=== PATIENT | male | born 1950 | race Caucasian/White ===

== ENCOUNTER → 2016-12-06 | Outpatient (CLI) | payer OTHER ==
[2016-12-06 09:36] LABS: Urine RBC None Seen /hpf (0 - 3)
[2016-12-06 09:44] LABS: Basophils # (auto) 0 uL; Basophils % (auto) 0.5 % (0.0-2.0); Eosinophils # (auto) 0.1 uL; Eosinophils % (auto) 2.2 % (0.0-7.0); Hemoglobin 13.6 g/dL (13.5-17.5); Lymphocytes # (auto) 0.8 uL; Lymphocytes % (auto) 17.2 % (10.0-50.0); Mean Corpuscular Hemoglobin 31.1 pg (28.0-32.0); Mean Corpuscular Hgb Conc. 33.3 g/dL (32.0-36.0); Mean Corpuscular Volume 93.6 fL (80.0-100.0); Mean Platelet Volume 5.9 fL (7.4-10.4); Monocytes # (auto) 0.3 uL; Monocytes % (auto) 6.7 % (0.0-12.0); Neutrophils # (auto) 3.5 uL; Neutrophils % (auto) 73.4 % (37.0-80.0); Platelet Count (auto) 283 10^3/uL (140-450); Red Cell Distribution Width 14.2 % (11.6-16.0); White Blood Cell 4.8 10^3/uL (4.4-10.8)
[2016-12-06 09:56] LABS: Urine Bilirubin Negative (Negative); Urine Blood Negative /uL (Negative); Urine Color Yellow (Yellow); Urine Glucose Normal (Normal); Urine Ketone Negative (Negative); Urine Nitrite Negative (Negative); Urine Squamous Epithelial Cell FEW /hpf (<5); Urine Urobilinogen Normal (Negative); Urine pH 5.5 (5.0-8.0)
[2016-12-06 10:29] LABS: Albumin 3.9 g/dL (3.4-5.0); Bilirubin, Total 0.4 mg/dL (0.2-1.0); Calcium 8.5 mg/dL (8.5-10.1); Potassium 4.5 mmol/L (3.5-5.1); Total Protein 7.1 g/dL (6.4-8.2); Uric Acid 4.9 mg/dL (3.5-7.2)
== END | disposition home or self-care (01) ==
LOC: LAB 08:42
PROVIDERS: ATTEND Student in an Organized Health Care Education/Training Program
DX: N18.3 Chronic kidney disease, stage 3 (moderate) (principal); I10 Essential (primary) hypertension
CPT/HCPCS: 36415; 80053; 80061; 81001; 82306; 83036; 83970; 84439; 84443; 84550; 85025

== ENCOUNTER → 2017-02-08 | Outpatient (CLI) | payer OTHER | END | disposition home or self-care (01) | LOC: XY 08:20 | PROVIDERS: ATTEND Internal Medicine Cardiovascular Disease | DX: I20.8 Other forms of angina pectoris (principal) | CPT/HCPCS: 78452; 93017 ==

== ENCOUNTER 2017-08-16 10:20 | Day surgery (SDC) | payer OTHER ==
[2017-08-12 10:18] LABS: Urine RBC None Seen /hpf (0 - 3)
[2017-08-12 10:55] LABS: Urine Bilirubin Negative (Negative); Urine Blood Negative /uL (Negative); Urine Glucose Normal (Normal); Urine Ketone Negative (Negative); Urine Nitrite Negative (Negative); Urine Urobilinogen Normal (Negative); Urine pH 5.5 (5.0-8.0)
[2017-08-12 10:56] LABS: Basophils # (auto) 0 uL; Basophils % (auto) 0.9 % (0.0-2.0); Eosinophils # (auto) 0.1 uL; Eosinophils % (auto) 1.6 % (0.0-7.0); Hematocrit 42.2 % (41.0-53.0); Hemoglobin 14.1 g/dL (13.5-17.5); Lymphocytes # (auto) 0.6 uL; Lymphocytes % (auto) 11.6 % (10.0-50.0); Mean Corpuscular Hemoglobin 31.6 pg (28.0-32.0); Mean Corpuscular Hgb Conc. 33.3 g/dL (32.0-36.0); Mean Corpuscular Volume 94.8 fL (80.0-100.0); Mean Platelet Volume 6.1 fL (6.9-10.8); Monocytes # (auto) 0.3 uL; Monocytes % (auto) 6.2 % (0.0-12.0); Neutrophils % (auto) 79.7 % (37.0-80.0); Platelet Count (auto) 242 10^3/uL (140-450); Red Cell Distribution Width 13.5 % (11.8-14.3); White Blood Cell 5.1 10^3/uL (4.4-10.8)
[2017-08-12 11:04] LABS: Urine Color Straw (Yellow)
[2017-08-12 11:09] LABS: Albumin 3.9 g/dL (3.4-5.0); BUN/Creatinine Ratio 19.4; Calcium 8.5 mg/dL (8.5-10.1); Potassium 4.3 mmol/L (3.5-5.1)
[2017-08-12 11:11] LABS: INR 0.92 (0.9-1.15); Partial Thromboplastin Time 27.8 sec (22.64-33.71)
[2017-08-12 11:12] LABS: Bilirubin, Total 0.4 mg/dL (0.2-1.0); Total Protein 7.4 g/dL (6.4-8.2)
[~2017-08-16] VITALS: Ht 177.8 cm; Wt 66.7 kg
[~2017-08-16 10:20] MED LIST: AMIT25TA9 PO; ATOR40TA52 PO; CITA-77 PO; CLOP75TA41 PO; FEBU40TA PO; LEVO50TA7 PO; METO25TA62 PO; NITR0.4S29 SL; RAMI2.5C33 PO; RANI150C11 PO
[2017-08-16] MEDS ORDERED: ceFAZolin 1GM/50ML 50 ML IV ONE (10:26)
[2017-08-16] MEDS ORDERED: BUPIVACAINE W/ EPINEPH 0.25% INJ 50ML MDV ONE (15:30)
[2017-08-16] MEDS ORDERED: LIDOCAINE 1% HCL (LOCAL ANESTH.) INJ 20ML MDV ONE (15:30)
[2017-08-16] MEDS ORDERED: BUPIVACAINE 0.25% INJ 50ML VIAL ONE (15:31)
[2017-08-16] MEDS ORDERED: fentaNYL CITRATE 100 MCG/2 ML VL ONE (15:44)
[2017-08-16] MEDS ORDERED: LIDOCAINE HCL 2 %PF INJ 10ML AMP IJ ONE (15:45)
[2017-08-16] MEDS ORDERED: PROPOFOL 10 MG/ML 20 ML IV ONE (15:48)
[2017-08-16] MEDS ORDERED: ePHEDrine SULFATE 50 MG/ML AMP ONE (16:06)
[2017-08-16] MEDS ORDERED: BUPIVACAINE W/ EPINEPH 0.25% INJ 50ML MDV IJ ONE (16:35)
[2017-08-16 17:30] VITALS: BP 128/67
== END 2017-08-16 17:36 | disposition home or self-care (01) ==
LOC: SUR 10:20
PROVIDERS: ATTEND Urology
DX: N43.3 Hydrocele, unspecified (principal); D69.6 Thrombocytopenia, unspecified; Z87.891 Personal history of nicotine dependence; Z90.5 Acquired absence of kidney
CPT/HCPCS: 36415; 55040; 80053; 81001; 85025; 85610; 85730; 88302; J0690; J2704; J3010; J2001; J3490

== ENCOUNTER → 2019-03-07 | Outpatient (CLI) | payer OTHER ==
[~2019-03-07] MED LIST changes: +METO25TA5 PO
[2019-03-07 08:57] LABS: Basophils # (auto) 0 uL; Basophils % (auto) 0.9 % (0.0-2.0); Eosinophils # (auto) 0.1 uL; Eosinophils % (auto) 2.5 % (0.0-7.0); Hematocrit 43.8 % (41.0-53.0); Hemoglobin 14.5 g/dL (13.5-17.5); Lymphocytes # (auto) 0.5 uL; Lymphocytes % (auto) 13.4 % (10.0-50.0); Mean Corpuscular Hemoglobin 31.2 pg (28.0-32.0); Mean Corpuscular Hgb Conc. 33.2 g/dL (32.0-36.0); Mean Corpuscular Volume 93.9 fL (80.0-100.0); Monocytes # (auto) 0.3 uL; Monocytes % (auto) 7.9 % (0.0-12.0); Neutrophils # (auto) 2.9 uL; Neutrophils % (auto) 75.3 % (37.0-80.0); Platelet Count (auto) 180 10^3/uL (140-450); Red Blood Cells 4.67 10^6/uL (4.5-5.90); White Blood Cell 3.9 10^3/uL (4.4-10.8)
[2019-03-07 10:07] LABS: Albumin 3.9 g/dL (3.4-5.0); Calcium 9.4 mg/dL (8.5-10.1); Potassium 4.6 mmol/L (3.5-5.1)
[2019-03-07 10:12] LABS: BUN/Creatinine Ratio 17.4; Bilirubin, Total 0.7 mg/dL (0.2-1.0); Phosphorus 2.9 mg/dL (2.5-4.90); Uric Acid 5.2 mg/dL (3.5-7.2)
[2019-03-07 10:16] LABS: Free T4 (Free Thyroxine) 0.95 ng/dL (0.89-1.76); Prostate Specific Antigen 0.61 ng/mL (0.0-4.0)
[2019-03-07 10:17] LABS: T3 Total 0.84 ng/mL (0.60-1.81)
== END | disposition home or self-care (01) ==
LOC: LAB 08:33
PROVIDERS: ATTEND Physician Assistant
DX: Z12.5 Encounter for screening for malignant neoplasm of prostate (principal); I12.9 Hypertensive chronic kidney disease with stage 1 through stage 4 chronic kidney disease, or unspecified chronic kidney disease; N18.3 Chronic kidney disease, stage 3 (moderate); E03.8 Other specified hypothyroidism; K21.9 Gastro-esophageal reflux disease without esophagitis; M1A.09X0 Idiopathic chronic gout, multiple sites, without tophus (tophi); D63.1 Anemia in chronic kidney disease; R80.9 Proteinuria, unspecified
CPT/HCPCS: 36415; 80053; 80061; 80069; 82306; 82570; 83970; 84153; 84156; 84439; 84443; 84480; 84550; 85025

== ENCOUNTER → 2019-10-26 | Outpatient (CLI) | payer OTHER ==
[~2019-10-26] MED LIST changes: -METO25TA62 PO; +METO25TA93 PO
[2019-10-26 12:03] LABS: Basophils # (auto) 0 uL; Basophils % (auto) 0.8 % (0.0-2.0); Eosinophils # (auto) 0.1 uL; Eosinophils % (auto) 1.8 % (0.0-7.0); Hematocrit 43.6 % (41.0-53.0); Hemoglobin 14.5 g/dL (13.5-17.5); Lymphocytes # (auto) 0.6 uL; Lymphocytes % (auto) 11.7 % (10.0-50.0); Mean Corpuscular Hemoglobin 31.9 pg (28.0-32.0); Mean Corpuscular Hgb Conc. 33.4 g/dL (32.0-36.0); Mean Corpuscular Volume 95.4 fL (80.0-100.0); Monocytes # (auto) 0.3 uL; Monocytes % (auto) 6.8 % (0.0-12.0); Neutrophils # (auto) 3.9 uL; Neutrophils % (auto) 78.9 % (37.0-80.0); Platelet Count (auto) 184 10^3/uL (140-450); Red Blood Cells 4.57 10^6/uL (4.5-5.90); Red Cell Distribution Width 13.7 % (11.8-14.3); Urine Blood Negative /uL (Negative); Urine Specific Gravity 1.008 (1.001-1.035); White Blood Cell 4.9 10^3/uL (4.4-10.8)
[2019-10-26 12:13] LABS: Creatinine, Urine 35 mg/dL (30.0-125.0); Protein, Urine 6.2 mg/dL (0.0-11.9)
[2019-10-26 12:18] LABS: Potassium 4.8 mmol/L (3.5-5.1)
[2019-10-26 12:28] LABS: Albumin 3.8 g/dL (3.4-5.0); BUN/Creatinine Ratio 28.4; Calcium 8.9 mg/dL (8.5-10.1); Phosphorus 2.4 mg/dL (2.5-4.90); Uric Acid 6.6 mg/dL (3.5-7.2)
== END | disposition home or self-care (01) ==
LOC: LAB 11:18
PROVIDERS: ATTEND Internal Medicine
DX: E55.9 Vitamin D deficiency, unspecified (principal); R80.9 Proteinuria, unspecified
CPT/HCPCS: 36415; 80069; 81003; 82306; 82570; 83970; 84156; 84550; 85025

== ENCOUNTER → 2019-12-07 | Day surgery (SDC) | payer OTHER ==
[2019-12-03 11:17] LABS: Urine WBC None Seen /hpf (0 - 3)
[2019-12-03 11:18] LABS: Basophils # (auto) 0.1 uL; Eosinophils # (auto) 0.1 uL; Eosinophils % (auto) 1.4 % (0.0-7.0); Hematocrit 42.8 % (41.0-53.0); Hemoglobin 14.1 g/dL (13.5-17.5); Lymphocytes # (auto) 0.6 uL; Lymphocytes % (auto) 10.2 % (10.0-50.0); Mean Corpuscular Hemoglobin 31.5 pg (28.0-32.0); Mean Corpuscular Volume 95.4 fL (80.0-100.0); Monocytes # (auto) 0.5 uL; Neutrophils # (auto) 4.9 uL; Neutrophils % (auto) 79.4 % (37.0-80.0); Platelet Count (auto) 178 10^3/uL (140-450); Red Blood Cells 4.48 10^6/uL (4.5-5.90); Red Cell Distribution Width 13.6 % (11.8-14.3); White Blood Cell 6.2 10^3/uL (4.4-10.8)
[2019-12-03 11:34] LABS: INR 1.01 (0.9-1.15); Partial Thromboplastin Time 26.8 sec (23.64-32.05)
[2019-12-03 11:35] LABS: Urine Bacteria NONE SEEN /hpf (None Seen); Urine Blood Negative /uL (Negative); Urine Specific Gravity 1.004 (1.001-1.035)
[2019-12-03 11:53] LABS: Albumin 3.7 g/dL (3.4-5.0); Calcium 8.4 mg/dL (8.5-10.1); Potassium 4.9 mmol/L (3.5-5.1)
[2019-12-03 11:56] LABS: BUN/Creatinine Ratio 19.3; Bilirubin, Total 0.4 mg/dL (0.2-1.0); Total Protein 6.8 g/dL (6.4-8.2)
[~2019-12-07] VITALS: Ht 177.8 cm; Wt 68.9 kg
[~2019-12-07] MED LIST changes: +ASPI-404 PO; +GLYCOPYRROLATE 0.2 MG/ML 1ML VIAL ONE; +HYDROmorphone HCL 2 MG/ML VL IV PRN; +LIDOCAINE 1% HCL (LOCAL ANESTH.) INJ 20ML MDV ONE; -METO25TA5 PO; +METOCLOPRAMIDE HCL 5MG/ml INJ 2ml VIAL ONE; +MIDAZOLAM HCL 1MG/1ML-2 ML VIAL ONE; +NALOXONE HCL 0.4 MG/ML VIAL IV PRN; +ONDANSETRON HCL 4 MG/2 ML VIAL IV PRN; +PROPOFOL 10 MG/ML 20 ML IV ONE; +SUCCINYLCHOLINE CHLORIDE 20 MG/ML 10ML VIAL IV ONE; +ceFAZolin 1GM/50ML 50 ML IV ONE; +diphenhdrAMINE HCL 50 MG/1 ML VL ONE
[2019-12-07 08:54] VITALS: BP 139/78
== END | disposition home or self-care (01) ==
LOC: SUR 06:10
PROVIDERS: ATTEND Orthopaedic Surgery
DX: G56.02 Carpal tunnel syndrome, left upper limb (principal); M72.8 Other fibroblastic disorders; I25.2 Old myocardial infarction; I25.10 Atherosclerotic heart disease of native coronary artery without angina pectoris; G47.33 Obstructive sleep apnea (adult) (pediatric); E07.9 Disorder of thyroid, unspecified; F32.9 Major depressive disorder, single episode, unspecified; Z79.01 Long term (current) use of anticoagulants; Z95.818 Presence of other cardiac implants and grafts; Z87.891 Personal history of nicotine dependence; Z79.899 Other long term (current) drug therapy
CPT/HCPCS: 25023; 36415; 64721; 80053; 81001; 85025; 85610; 85730; J0330; J0690; J1200; J2001; J2250; J2704; J2765

== ENCOUNTER → 2020-03-05 | Outpatient (CLI) | payer OTHER ==
[~2020-03-05] MED LIST changes: -GLYCOPYRROLATE 0.2 MG/ML 1ML VIAL ONE; -HYDROmorphone HCL 2 MG/ML VL IV PRN; -LIDOCAINE 1% HCL (LOCAL ANESTH.) INJ 20ML MDV ONE; -METOCLOPRAMIDE HCL 5MG/ml INJ 2ml VIAL ONE; -MIDAZOLAM HCL 1MG/1ML-2 ML VIAL ONE; -NALOXONE HCL 0.4 MG/ML VIAL IV PRN; -ONDANSETRON HCL 4 MG/2 ML VIAL IV PRN; -PROPOFOL 10 MG/ML 20 ML IV ONE; -SUCCINYLCHOLINE CHLORIDE 20 MG/ML 10ML VIAL IV ONE; -ceFAZolin 1GM/50ML 50 ML IV ONE; -diphenhdrAMINE HCL 50 MG/1 ML VL ONE
[2020-03-05 08:24] LABS: Basophils # (auto) 0 10 ^3/uL (0-0.2); Basophils % (auto) 0.9 % (0.0-2.0); Eosinophils # (auto) 0.1 10 ^3/uL (0-0.8); Eosinophils % (auto) 1.9 % (0.0-7.0); Hematocrit 41.9 % (41.0-53.0); Lymphocytes # (auto) 0.4 10 ^3/uL (0.4-5.4); Lymphocytes % (auto) 10.9 % (10.0-50.0); Mean Corpuscular Hemoglobin 32.1 pg (28.0-32.0); Mean Corpuscular Hgb Conc. 33.5 g/dL (32.0-36.0); Mean Corpuscular Volume 95.9 fL (80.0-100.0); Monocytes # (auto) 0.3 10 ^3/uL (0-1.3); Monocytes % (auto) 8.6 % (0.0-12.0); Neutrophils # (auto) 3.1 10 ^3/uL (1.6-8.6); Neutrophils % (auto) 77.7 % (37.0-80.0); Platelet Count (auto) 176 10^3/uL (140-450); Red Blood Cells 4.36 10^6/uL (4.5-5.90)
[2020-03-05 08:27] LABS: Urine Blood Negative /uL (Negative); Urine Specific Gravity 1.016 (1.001-1.035)
[2020-03-05 08:53] LABS: Potassium 4.2 mmol/L (3.5-5.1)
[2020-03-05 08:58] LABS: Creatinine, Urine 151 mg/dL (30.0-125.0); Protein, Urine 18.2 mg/dL (0.0-11.9)
[2020-03-05 09:00] LABS: BUN/Creatinine Ratio 21.9; Bilirubin, Total 0.6 mg/dL (0.2-1.0); Calcium 8.5 mg/dL (8.5-10.1); Phosphorus 2.5 mg/dL (2.5-4.90); Total Protein 7.2 g/dL (6.4-8.2)
== END | disposition home or self-care (01) ==
LOC: LAB 07:47
PROVIDERS: ATTEND Physician Assistant
DX: Z00.00 Encounter for general adult medical examination without abnormal findings (principal); I10 Essential (primary) hypertension; N18.3 Chronic kidney disease, stage 3 (moderate); E03.9 Hypothyroidism, unspecified; J44.9 Chronic obstructive pulmonary disease, unspecified; R35.1 Nocturia; E55.9 Vitamin D deficiency, unspecified; R80.9 Proteinuria, unspecified
CPT/HCPCS: 36415; 80053; 80061; 80069; 81003; 82306; 82570; 83970; 84153; 84156; 84443; 84550; 85025

== ENCOUNTER → 2020-03-26 | Outpatient (CLI) | payer OTHER ==
[~2020-03-26] MED LIST changes: +LIDOCAINE 2%HCL (LOCAL ANESTH.) INJ 20ML MDV ONE
== END | disposition home or self-care (01) ==
LOC: XYW 07:56
PROVIDERS: ATTEND Internal Medicine
DX: I07.1 Rheumatic tricuspid insufficiency (principal); R07.9 Chest pain, unspecified
CPT/HCPCS: 93306

== ENCOUNTER → 2020-03-26 | Outpatient (CLI) | payer OTHER ==
[~2020-03-26] MED LIST changes: -LIDOCAINE 2%HCL (LOCAL ANESTH.) INJ 20ML MDV ONE
[2020-03-26 09:29] LABS: Basophils # (auto) 0 10 ^3/uL (0-0.2); Basophils % (auto) 0.5 % (0.0-2.0); Eosinophils # (auto) 0.1 10 ^3/uL (0-0.8); Eosinophils % (auto) 1.2 % (0.0-7.0); Hematocrit 39.1 % (41.0-53.0); Hemoglobin 12.8 g/dL (13.5-17.5); Lymphocytes # (auto) 0.5 10 ^3/uL (0.4-5.4); Lymphocytes % (auto) 7.5 % (10.0-50.0); Mean Corpuscular Hemoglobin 31.3 pg (28.0-32.0); Mean Corpuscular Hgb Conc. 32.6 g/dL (32.0-36.0); Monocytes # (auto) 0.7 10 ^3/uL (0-1.3); Neutrophils # (auto) 5.3 10 ^3/uL (1.6-8.6); Neutrophils % (auto) 80.8 % (37.0-80.0); Nucleated Red Blood Cells % 0.1 %; Platelet Count (auto) 190 10^3/uL (140-450); Red Blood Cells 4.08 10^6/uL (4.5-5.90); Red Cell Distribution Width 13.6 % (11.8-14.3); White Blood Cell 6.5 10^3/uL (4.4-10.8)
[2020-03-26 09:51] LABS: INR 1.01 (0.9-1.15); Partial Thromboplastin Time 34.2 sec (23.64-32.05)
== END | disposition home or self-care (01) ==
LOC: LAB 09:10
PROVIDERS: ATTEND Physician Assistant
DX: Z01.818 Encounter for other preprocedural examination (principal)
CPT/HCPCS: 36415; 85025; 85610; 85730

== ENCOUNTER → 2020-04-01 | Outpatient (CLI) | payer OTHER ==
[~2020-04-01] VITALS: Ht 30.5 cm; Wt 0.5 kg
[~2020-04-01] MED LIST changes: +MIDAZOLAM HCL 1MG/1ML-2 ML VIAL IV ONE; +MIDAZOLAM HCL 1MG/1ML-2 ML VIAL ONE; +fentaNYL CITRATE 100 MCG/2 ML VL IV ONE; +fentaNYL CITRATE 100 MCG/2 ML VL ONE
== END | disposition home or self-care (01) ==
LOC: CT 08:27
PROVIDERS: ATTEND Physician Assistant
DX: R91.1 Solitary pulmonary nodule (principal); Z79.899 Other long term (current) drug therapy; Z98.890 Other specified postprocedural states; Z88.5 Allergy status to narcotic agent; Z87.891 Personal history of nicotine dependence; J98.9 Respiratory disorder, unspecified
CPT/HCPCS: 32405; 71045; 71250; 77012; 88305; J2250; J3010; 10022

== ENCOUNTER → 2020-04-02 | Outpatient (CLI) | payer OTHER ==
[~2020-04-02] MED LIST changes: -MIDAZOLAM HCL 1MG/1ML-2 ML VIAL IV ONE; -MIDAZOLAM HCL 1MG/1ML-2 ML VIAL ONE; -fentaNYL CITRATE 100 MCG/2 ML VL IV ONE; -fentaNYL CITRATE 100 MCG/2 ML VL ONE
== END | disposition home or self-care (01) ==
LOC: XYW 09:26
PROVIDERS: ATTEND Physician Assistant
DX: I70.0 Atherosclerosis of aorta (principal); R91.8 Other nonspecific abnormal finding of lung field
CPT/HCPCS: 71046

== ENCOUNTER → 2020-04-03 | Outpatient (CLI) | payer OTHER | END | disposition home or self-care (01) | LOC: XY 08:39 | PROVIDERS: ATTEND Physician Assistant | DX: I70.0 Atherosclerosis of aorta (principal); J93.9 Pneumothorax, unspecified | CPT/HCPCS: 71045 ==

== ENCOUNTER → 2020-05-05 | Outpatient (CLI) | payer OTHER ==
[~2020-05-05] MED LIST changes: -ASPI-404 PO; +ASPI-543 PO
[2020-05-05 09:28] LABS: Urine WBC None Seen /hpf (0 - 3)
[2020-05-05 09:34] LABS: Basophils # (auto) 0.1 10 ^3/uL (0-0.2); Basophils % (auto) 1.2 % (0.0-2.0); Eosinophils # (auto) 0.1 10 ^3/uL (0-0.8); Eosinophils % (auto) 1.8 % (0.0-7.0); Hematocrit 38.9 % (41.0-53.0); Hemoglobin 12.9 g/dL (13.5-17.5); Lymphocytes # (auto) 0.6 10 ^3/uL (0.4-5.4); Mean Corpuscular Hemoglobin 31.5 pg (28.0-32.0); Mean Corpuscular Hgb Conc. 33.2 g/dL (32.0-36.0); Monocytes # (auto) 0.4 10 ^3/uL (0-1.3); Platelet Count (auto) 177 10^3/uL (140-450); Red Blood Cells 4.09 10^6/uL (4.5-5.90); White Blood Cell 5.1 10^3/uL (4.4-10.8)
[2020-05-05 09:39] LABS: Urine Bacteria NONE SEEN /hpf (None Seen); Urine Blood Negative /uL (Negative); Urine Specific Gravity 1.007 (1.001-1.035)
[2020-05-05 10:09] LABS: Albumin 3.6 g/dL (3.4-5.0); BUN/Creatinine Ratio 23.7; Calcium 8.7 mg/dL (8.5-10.1); Potassium 4.6 mmol/L (3.5-5.1); Uric Acid 5.2 mg/dL (3.5-7.2)
[2020-05-05 10:10] LABS: Protein, Urine 6.3 mg/dL (0.0-11.9)
== END | disposition home or self-care (01) ==
LOC: LAB 09:18
PROVIDERS: ATTEND Internal Medicine
DX: N18.3 Chronic kidney disease, stage 3 (moderate) (principal); D63.1 Anemia in chronic kidney disease; E21.3 Hyperparathyroidism, unspecified; E78.5 Hyperlipidemia, unspecified; M10.9 Gout, unspecified; R80.9 Proteinuria, unspecified; E56.9 Vitamin deficiency, unspecified
CPT/HCPCS: 36415; 80069; 81001; 82306; 82570; 83970; 84156; 84550; 85025

== ENCOUNTER → 2020-05-29 | Outpatient (CLI) | payer OTHER ==
[~2020-05-29] VITALS: Ht 177.8 cm; Wt 68.0 kg
[~2020-05-29] MED LIST changes: +ADENOSINE 57 MG in GIVE UN-DILUTED 0 ML IV STA; +ADENOSINE 95 MG in GIVE UN-DILUTED 0 ML IV STA
== END | disposition home or self-care (01) ==
LOC: XY 05-28 08:22
PROVIDERS: ATTEND Internal Medicine
DX: R07.9 Chest pain, unspecified (principal); I10 Essential (primary) hypertension; E78.5 Hyperlipidemia, unspecified; Z95.5 Presence of coronary angioplasty implant and graft
CPT/HCPCS: 93017; J0153

== ENCOUNTER → 2020-06-05 | Outpatient (CLI) | payer OTHER ==
[~2020-06-05] MED LIST changes: -ADENOSINE 57 MG in GIVE UN-DILUTED 0 ML IV STA; -ADENOSINE 95 MG in GIVE UN-DILUTED 0 ML IV STA
== END | disposition home or self-care (01) ==
LOC: LAB 10:53
PROVIDERS: ATTEND Physician Assistant
DX: R35.1 Nocturia (principal)
CPT/HCPCS: 84153

== ENCOUNTER → 2020-08-22 | Outpatient (CLI) | payer OTHER ==
[2020-08-22 08:36] LABS: Basophils # (auto) 0 10 ^3/uL (0-0.2); Basophils % (auto) 0.4 % (0.0-2.0); Eosinophils # (auto) 0.1 10 ^3/uL (0-0.8); Eosinophils % (auto) 2.1 % (0.0-7.0); Hematocrit 43.2 % (41.0-53.0); Hemoglobin 14.5 g/dL (13.5-17.5); Lymphocytes # (auto) 0.6 10 ^3/uL (0.4-5.4); Lymphocytes % (auto) 13.3 % (10.0-50.0); Mean Corpuscular Hemoglobin 32.1 pg (28.0-32.0); Mean Corpuscular Hgb Conc. 33.5 g/dL (32.0-36.0); Monocytes # (auto) 0.3 10 ^3/uL (0-1.3); Monocytes % (auto) 7.4 % (0.0-12.0); Neutrophils # (auto) 3.6 10 ^3/uL (1.6-8.6); Neutrophils % (auto) 76.8 % (37.0-80.0); Platelet Count (auto) 184 10^3/uL (140-450); Red Cell Distribution Width 14.4 % (11.8-14.3); White Blood Cell 4.6 10^3/uL (4.4-10.8)
[2020-08-22 09:51] LABS: Potassium 5.4 mmol/L (3.5-5.1)
[2020-08-22 09:59] LABS: Albumin 3.7 g/dL (3.4-5.0); BUN/Creatinine Ratio 17.3; Bilirubin, Total 0.5 mg/dL (0.2-1.0); Total Protein 6.7 g/dL (6.4-8.2); Uric Acid 6.9 mg/dL (3.5-7.2)
== END | disposition home or self-care (01) ==
LOC: LAB 07:52
PROVIDERS: ATTEND Physician Assistant
DX: I12.9 Hypertensive chronic kidney disease with stage 1 through stage 4 chronic kidney disease, or unspecified chronic kidney disease (principal); N18.30 Chronic kidney disease, stage 3 unspecified; E79.0 Hyperuricemia without signs of inflammatory arthritis and tophaceous disease; D69.6 Thrombocytopenia, unspecified; E03.9 Hypothyroidism, unspecified; R35.1 Nocturia
CPT/HCPCS: 36415; 80053; 80061; 84153; 84443; 84550; 85025

== ENCOUNTER → 2020-11-10 | Outpatient (CLI) | payer OTHER ==
[~2020-11-10] MED LIST changes: -CLOP75TA41 PO; +CLOP75TA70 PO
[2020-11-10 08:31] LABS: Basophils # (auto) 0 10 ^3/uL (0-0.2); Eosinophils # (auto) 0.1 10 ^3/uL (0-0.8); Eosinophils % (auto) 2.8 % (0.0-7.0); Hematocrit 41.1 % (41.0-53.0); Lymphocytes # (auto) 0.5 10 ^3/uL (0.4-5.4); Lymphocytes % (auto) 11.8 % (10.0-50.0); Mean Corpuscular Hgb Conc. 33.9 g/dL (32.0-36.0); Mean Corpuscular Volume 94.2 fL (80.0-100.0); Monocytes # (auto) 0.3 10 ^3/uL (0-1.3); Monocytes % (auto) 7.3 % (0.0-12.0); Neutrophils # (auto) 3.6 10 ^3/uL (1.6-8.6); Neutrophils % (auto) 77.1 % (37.0-80.0); Platelet Count (auto) 196 10^3/uL (140-450); Red Blood Cells 4.36 10^6/uL (4.5-5.90); Red Cell Distribution Width 13.5 % (11.8-14.3); White Blood Cell 4.6 10^3/uL (4.4-10.8)
[2020-11-10 08:35] LABS: Urine Bacteria NONE SEEN /hpf (None Seen); Urine Blood TRACE /uL (Negative); Urine Specific Gravity 1.014 (1.001-1.035); Urine WBC 1 /hpf (0 - 3)
[2020-11-10 09:03] LABS: Albumin 3.9 g/dL (3.4-5.0); BUN/Creatinine Ratio 14.8; Calcium 8.6 mg/dL (8.5-10.1); Phosphorus 2.4 mg/dL (2.5-4.90); Potassium 4.1 mmol/L (3.5-5.1)
[2020-11-11 02:48] LABS: Protein, Urine 22.5 mg/dL (0.0-11.9)
== END | disposition home or self-care (01) ==
LOC: LAB 08:03
PROVIDERS: ATTEND Internal Medicine
DX: N18.30 Chronic kidney disease, stage 3 unspecified (principal); D63.1 Anemia in chronic kidney disease; E21.3 Hyperparathyroidism, unspecified; E78.5 Hyperlipidemia, unspecified; M10.9 Gout, unspecified; R80.9 Proteinuria, unspecified; E56.9 Vitamin deficiency, unspecified
CPT/HCPCS: 36415; 80069; 81001; 82306; 82570; 83970; 84156; 84550; 85025

== ENCOUNTER → 2020-12-09 | Outpatient (CLI) | payer OTHER | END | disposition home or self-care (01) | LOC: XYW 08:01 | PROVIDERS: ATTEND Internal Medicine | DX: I10 Essential (primary) hypertension (principal) | CPT/HCPCS: 93306 ==

== ENCOUNTER → 2021-02-27 | Outpatient (CLI) | payer OTHER ==
[~2021-02-27] MED LIST changes: +ALBUTEROL SULF 2.5 MG/0.5ML(0.5%) NEB SOLN ONE
== END | disposition home or self-care (01) ==
LOC: RT 08:43
PROVIDERS: ATTEND Internal Medicine Pulmonary Disease
DX: J44.9 Chronic obstructive pulmonary disease, unspecified (principal); J98.4 Other disorders of lung
CPT/HCPCS: 94060; 94727; 94729

== ENCOUNTER → 2021-05-04 | Outpatient (CLI) | payer OTHER ==
[~2021-05-04] MED LIST changes: -ALBUTEROL SULF 2.5 MG/0.5ML(0.5%) NEB SOLN ONE
[2021-05-04 09:35] LABS: Urine WBC None Seen /hpf (0 - 3)
[2021-05-04 09:41] LABS: Basophils # (auto) 0.1 10 ^3/uL (0-0.2); Basophils % (auto) 1.1 % (0.0-2.0); Eosinophils # (auto) 0.1 10 ^3/uL (0-0.8); Eosinophils % (auto) 2.6 % (0.0-7.0); Hematocrit 39.7 % (41.0-53.0); Hemoglobin 13.2 g/dL (13.5-17.5); Lymphocytes # (auto) 0.5 10 ^3/uL (0.4-5.4); Lymphocytes % (auto) 10.7 % (10.0-50.0); Mean Corpuscular Hemoglobin 31.6 pg (28.0-32.0); Mean Corpuscular Hgb Conc. 33.4 g/dL (32.0-36.0); Mean Corpuscular Volume 94.8 fL (80.0-100.0); Monocytes # (auto) 0.3 10 ^3/uL (0-1.3); Monocytes % (auto) 6.7 % (0.0-12.0); Neutrophils # (auto) 3.6 10 ^3/uL (1.6-8.6); Neutrophils % (auto) 78.9 % (37.0-80.0); Red Blood Cells 4.18 10^6/uL (4.5-5.90); Red Cell Distribution Width 13.6 % (11.8-14.3); White Blood Cell 4.5 10^3/uL (4.4-10.8)
[2021-05-04 09:47] LABS: Urine Bacteria FEW /hpf (None Seen); Urine Blood Negative /uL (Negative); Urine Specific Gravity 1.005 (1.001-1.035)
[2021-05-04 10:37] LABS: Potassium 4.1 mmol/L (3.5-5.1)
[2021-05-04 10:41] LABS: Protein, Urine 5.7 mg/dL (0.0-11.9)
[2021-05-04 10:43] LABS: Albumin 3.4 g/dL (3.4-5.0); Calcium 8.3 mg/dL (8.5-10.1)
== END | disposition home or self-care (01) ==
LOC: LAB 09:02
PROVIDERS: ATTEND Internal Medicine
DX: N18.31 Chronic kidney disease, stage 3a (principal); D63.1 Anemia in chronic kidney disease; E21.3 Hyperparathyroidism, unspecified; E78.5 Hyperlipidemia, unspecified; M10.9 Gout, unspecified; R80.9 Proteinuria, unspecified; E56.9 Vitamin deficiency, unspecified
CPT/HCPCS: 36415; 80069; 81001; 82306; 82570; 83970; 84156; 84550; 85025

== ENCOUNTER → 2021-11-09 | Outpatient (CLI) | payer OTHER ==
[~2021-11-09] MED LIST changes: +AMIT25TA12 PO; -AMIT25TA9 PO
[2021-11-09 10:16] LABS: Basophils # (auto) 0.1 10 ^3/uL (0-0.2); Basophils % (auto) 1.5 % (0.0-2.0); Eosinophils # (auto) 0.1 10 ^3/uL (0-0.8); Eosinophils % (auto) 2.9 % (0.0-7.0); Hematocrit 39.9 % (41.0-53.0); Hemoglobin 13.2 g/dL (13.5-17.5); Lymphocytes # (auto) 0.5 10 ^3/uL (0.4-5.4); Lymphocytes % (auto) 11.2 % (10.0-50.0); Mean Corpuscular Hemoglobin 30.7 pg (28.0-32.0); Mean Corpuscular Hgb Conc. 33.1 g/dL (32.0-36.0); Mean Corpuscular Volume 92.7 fL (80.0-100.0); Monocytes # (auto) 0.4 10 ^3/uL (0-1.3); Monocytes % (auto) 7.6 % (0.0-12.0); Neutrophils # (auto) 3.7 10 ^3/uL (1.6-8.6); Neutrophils % (auto) 76.8 % (37.0-80.0); White Blood Cell 4.8 10^3/uL (4.4-10.8)
[2021-11-09 10:35] LABS: Urine Bacteria FEW /hpf (None Seen); Urine Blood Negative /uL (Negative); Urine Specific Gravity 1.008 (1.001-1.035); Urine WBC <1 /hpf (0 - 3)
[2021-11-09 10:46] LABS: Potassium 4.4 mmol/L (3.5-5.1)
[2021-11-09 10:47] LABS: Protein, Urine 9.1 mg/dL (0.0-11.9)
[2021-11-09 11:04] LABS: Albumin 3.5 g/dL (3.4-5.0); BUN/Creatinine Ratio 18.7; Calcium 8.3 mg/dL (8.5-10.1); Phosphorus 2.4 mg/dL (2.5-4.90); Uric Acid 2.8 mg/dL (3.5-7.2)
== END | disposition home or self-care (01) ==
LOC: LAB 09:42
PROVIDERS: ATTEND Internal Medicine
DX: D63.1 Anemia in chronic kidney disease (principal); N18.31 Chronic kidney disease, stage 3a; E21.3 Hyperparathyroidism, unspecified; E78.5 Hyperlipidemia, unspecified; M10.9 Gout, unspecified; R80.9 Proteinuria, unspecified; R82.90 Unspecified abnormal findings in urine; E50.9 Vitamin A deficiency, unspecified
CPT/HCPCS: 36415; 80069; 81001; 82306; 82570; 83970; 84156; 84550; 85025

== ENCOUNTER → 2021-11-23 | Outpatient (CLI) | payer OTHER ==
[2021-11-23 08:37] LABS: Basophils # (auto) 0 10 ^3/uL (0-0.2); Basophils % (auto) 1.1 % (0.0-2.0); Eosinophils # (auto) 0.1 10 ^3/uL (0-0.8); Eosinophils % (auto) 2.9 % (0.0-7.0); Hematocrit 40.2 % (41.0-53.0); Hemoglobin 13.2 g/dL (13.5-17.5); Lymphocytes # (auto) 0.5 10 ^3/uL (0.4-5.4); Lymphocytes % (auto) 12.2 % (10.0-50.0); Mean Corpuscular Hemoglobin 30.6 pg (28.0-32.0); Mean Corpuscular Hgb Conc. 32.9 g/dL (32.0-36.0); Mean Corpuscular Volume 92.8 fL (80.0-100.0); Monocytes # (auto) 0.4 10 ^3/uL (0-1.3); Monocytes % (auto) 8.8 % (0.0-12.0); Neutrophils # (auto) 3.3 10 ^3/uL (1.6-8.6); Red Blood Cells 4.33 10^6/uL (4.5-5.90); Red Cell Distribution Width 13.8 % (11.8-14.3); White Blood Cell 4.3 10^3/uL (4.4-10.8)
[2021-11-23 09:02] LABS: INR 0.99 (0.9-1.15); Partial Thromboplastin Time 25.7 sec (23.6-33.0)
[2021-11-23 09:18] LABS: Albumin 3.7 g/dL (3.4-5.0); Calcium 8.9 mg/dL (8.5-10.1); Potassium 4.4 mmol/L (3.5-5.1)
[2021-11-23 09:23] LABS: Bilirubin, Total 0.4 mg/dL (0.2-1.0); Total Protein 6.8 g/dL (6.4-8.2)
[2021-11-23 13:41] LABS: Free T4 (Free Thyroxine) 0.93 ng/dL (0.89-1.76); Prostate Specific Antigen 0.71 ng/mL (0.0-4.0)
== END | disposition home or self-care (01) ==
LOC: LAB 08:04
PROVIDERS: ATTEND Nurse Practitioner Family
DX: Z01.812 Encounter for preprocedural laboratory examination (principal); R91.8 Other nonspecific abnormal finding of lung field; J44.9 Chronic obstructive pulmonary disease, unspecified; E78.5 Hyperlipidemia, unspecified; I10 Essential (primary) hypertension; E03.9 Hypothyroidism, unspecified; R35.1 Nocturia
CPT/HCPCS: 36415; 80053; 80061; 84153; 84439; 84443; 85025; 85610; 85730

== ENCOUNTER → 2021-11-26 | Outpatient (CLI) | payer OTHER ==
[~2021-11-26] MED LIST changes: +LIDOCAINE 2%HCL (LOCAL ANESTH.) INJ 20ML MDV ONE
== END | disposition home or self-care (01) ==
LOC: XYW 09:04
PROVIDERS: ATTEND Internal Medicine
DX: R91.1 Solitary pulmonary nodule (principal); J84.9 Interstitial pulmonary disease, unspecified; J43.9 Emphysema, unspecified; J84.10 Pulmonary fibrosis, unspecified; I25.10 Atherosclerotic heart disease of native coronary artery without angina pectoris; K85.90 Acute pancreatitis without necrosis or infection, unspecified
CPT/HCPCS: 71250

== ENCOUNTER → 2022-05-11 | Outpatient (CLI) | payer OTHER ==
[~2022-05-11] MED LIST changes: -LIDOCAINE 2%HCL (LOCAL ANESTH.) INJ 20ML MDV ONE
[2022-05-11 11:15] LABS: Urine WBC None Seen /hpf (0 - 3)
[2022-05-11 11:19] LABS: Basophils # (auto) 0 10 ^3/uL (0-0.2); Basophils % (auto) 0.9 % (0.0-2.0); Eosinophils # (auto) 0.1 10 ^3/uL (0-0.8); Eosinophils % (auto) 1.5 % (0.0-7.0); Hematocrit 38.6 % (41.0-53.0); Hemoglobin 12.6 g/dL (13.5-17.5); Lymphocytes # (auto) 0.5 10 ^3/uL (0.4-5.4); Lymphocytes % (auto) 9.6 % (10.0-50.0); Mean Corpuscular Hemoglobin 30.4 pg (28.0-32.0); Mean Corpuscular Hgb Conc. 32.7 g/dL (32.0-36.0); Mean Corpuscular Volume 92.9 fL (80.0-100.0); Monocytes # (auto) 0.3 10 ^3/uL (0-1.3); Monocytes % (auto) 6.8 % (0.0-12.0); Neutrophils % (auto) 81.2 % (37.0-80.0); Nucleated Red Blood Cells % 0.1 %; Red Blood Cells 4.15 10^6/uL (4.5-5.90); Red Cell Distribution Width 13.8 % (11.8-14.3)
[2022-05-11 11:29] LABS: Urine Bacteria NONE SEEN /hpf (None Seen); Urine Blood Negative /uL (Negative); Urine Specific Gravity 1.004 (1.001-1.035)
[2022-05-11 11:47] LABS: Calcium 8.3 mg/dL (8.5-10.1); Potassium 4.5 mmol/L (3.5-5.1)
[2022-05-11 11:50] LABS: Albumin 3.4 g/dL (3.4-5.0); BUN/Creatinine Ratio 16.8; Phosphorus 2.2 mg/dL (2.5-4.90); Uric Acid 3.8 mg/dL (3.5-7.2)
[2022-05-11 11:53] LABS: Protein, Urine 5.7 mg/dL (0.0-11.9)
== END | disposition home or self-care (01) ==
LOC: LAB 10:51
PROVIDERS: ATTEND Internal Medicine
DX: E78.5 Hyperlipidemia, unspecified (principal); E21.3 Hyperparathyroidism, unspecified; N18.30 Chronic kidney disease, stage 3 unspecified; D63.1 Anemia in chronic kidney disease; M10.9 Gout, unspecified; R80.9 Proteinuria, unspecified; R82.90 Unspecified abnormal findings in urine
CPT/HCPCS: 36415; 80069; 81001; 82306; 82570; 83970; 84156; 84550; 85025

== ENCOUNTER → 2022-06-22 | Outpatient (CLI) | payer OTHER | END | disposition home or self-care (01) | LOC: XYW 07:51 | PROVIDERS: ATTEND Internal Medicine | DX: I07.1 Rheumatic tricuspid insufficiency (principal); I10 Essential (primary) hypertension | CPT/HCPCS: 93306 ==

== ENCOUNTER → 2022-08-06 | Outpatient (CLI) | payer OTHER ==
[~2022-08-06] VITALS: Ht 175.3 cm; Wt 80.7 kg
== END | disposition home or self-care (01) ==
LOC: XYW 07:38
PROVIDERS: ATTEND Internal Medicine
DX: R06.02 Shortness of breath (principal); I25.10 Atherosclerotic heart disease of native coronary artery without angina pectoris; J44.9 Chronic obstructive pulmonary disease, unspecified; Z95.5 Presence of coronary angioplasty implant and graft
CPT/HCPCS: 78452; 93017; A9500

== ENCOUNTER → 2022-10-01 | Outpatient (CLI) | payer OTHER ==
[2022-10-01 08:18] LABS: Basophils # (auto) 0.1 10 ^3/uL (0-0.2); Basophils % (auto) 1.1 % (0.0-2.0); Eosinophils # (auto) 0.1 10 ^3/uL (0-0.8); Eosinophils % (auto) 2.5 % (0.0-7.0); Hematocrit 39.5 % (41.0-53.0); Hemoglobin 13.4 g/dL (13.5-17.5); Lymphocytes # (auto) 0.7 10 ^3/uL (0.4-5.4); Lymphocytes % (auto) 14.8 % (10.0-50.0); Mean Corpuscular Hemoglobin 30.9 pg (28.0-32.0); Mean Corpuscular Hgb Conc. 33.9 g/dL (32.0-36.0); Monocytes # (auto) 0.4 10 ^3/uL (0-1.3); Monocytes % (auto) 7.5 % (0.0-12.0); Neutrophils # (auto) 3.7 10 ^3/uL (1.6-8.6); Neutrophils % (auto) 74.1 % (37.0-80.0); Nucleated Red Blood Cells % 0.1 %; Red Blood Cells 4.34 10^6/uL (4.5-5.90); Red Cell Distribution Width 14.4 % (11.8-14.3)
[2022-10-01 09:08] LABS: Albumin 3.8 g/dL (3.4-5.0); Potassium 4.2 mmol/L (3.5-5.1)
[2022-10-01 09:16] LABS: BUN/Creatinine Ratio 23.1; Bilirubin, Total 0.4 mg/dL (0.2-1.0); Calcium 9.1 mg/dL (8.5-10.1); Free T4 (Free Thyroxine) 0.91 ng/dL (0.89-1.76); Prostate Specific Antigen 2.47 ng/mL (0.0-4.0); Total Protein 7.6 g/dL (6.4-8.2)
== END | disposition home or self-care (01) ==
LOC: LAB 08:02
PROVIDERS: ATTEND Nurse Practitioner Family
DX: Z00.00 Encounter for general adult medical examination without abnormal findings (principal); I10 Essential (primary) hypertension; E03.9 Hypothyroidism, unspecified
CPT/HCPCS: 36415; 80053; 80061; 84153; 84439; 84443; 85025

== ENCOUNTER → 2022-10-20 | Outpatient (CLI) | payer OTHER | END | disposition home or self-care (01) | LOC: LAB 09:58 | PROVIDERS: ATTEND Nurse Practitioner Family | DX: R19.7 Diarrhea, unspecified (principal) | CPT/HCPCS: 87045; 87177; 87427; 87493 ==

== ENCOUNTER → 2022-11-25 | Outpatient (CLI) | payer OTHER ==
[2022-11-25 10:18] LABS: Basophils # (auto) 0 10 ^3/uL (0-0.2); Basophils % (auto) 0.8 % (0.0-2.0); Eosinophils # (auto) 0.1 10 ^3/uL (0-0.8); Eosinophils % (auto) 1.6 % (0.0-7.0); Hematocrit 41.1 % (41.0-53.0); Hemoglobin 13.4 g/dL (13.5-17.5); Lymphocytes # (auto) 0.7 10 ^3/uL (0.4-5.4); Lymphocytes % (auto) 11.8 % (10.0-50.0); Mean Corpuscular Hemoglobin 30.1 pg (28.0-32.0); Mean Corpuscular Hgb Conc. 32.5 g/dL (32.0-36.0); Mean Corpuscular Volume 92.8 fL (80.0-100.0); Monocytes # (auto) 0.4 10 ^3/uL (0-1.3); Neutrophils # (auto) 4.4 10 ^3/uL (1.6-8.6); Neutrophils % (auto) 78.8 % (37.0-80.0); Nucleated Red Blood Cells % 0.1 %; Red Blood Cells 4.43 10^6/uL (4.5-5.90); Red Cell Distribution Width 15.2 % (11.8-14.3); White Blood Cell 5.6 10^3/uL (4.4-10.8)
[2022-11-25 11:02] LABS: Albumin 3.5 g/dL (3.4-5.0); BUN/Creatinine Ratio 18.9; Calcium 8.4 mg/dL (8.5-10.1); Phosphorus 2.3 mg/dL (2.5-4.90); Potassium 4.5 mmol/L (3.5-5.1); Uric Acid 4.2 mg/dL (3.5-7.2)
[2022-11-25 11:06] LABS: Urine Bacteria NONE SEEN /hpf (None Seen); Urine Blood Negative /uL (Negative); Urine Specific Gravity 1.002 (1.001-1.035); Urine WBC <1 /hpf (0 - 3)
[2022-11-25 14:12] LABS: Protein, Urine 5.8 mg/dL (0.0-11.9)
== END | disposition home or self-care (01) ==
LOC: LAB 09:59
PROVIDERS: ATTEND Internal Medicine
DX: N18.31 Chronic kidney disease, stage 3a (principal); D63.1 Anemia in chronic kidney disease; E21.3 Hyperparathyroidism, unspecified; E78.5 Hyperlipidemia, unspecified; M10.9 Gout, unspecified; R80.9 Proteinuria, unspecified; R82.90 Unspecified abnormal findings in urine
CPT/HCPCS: 36415; 80069; 81001; 82306; 82570; 83970; 84156; 84550; 85025

== ENCOUNTER 2023-05-10 06:28 | Day surgery (SDC) | payer OTHER ==
[2023-05-09 10:20] LABS: Basophils # (auto) 0 10 ^3/uL (0-0.2); Basophils % (auto) 0.5 % (0.0-2.0); Eosinophils # (auto) 0.1 10 ^3/uL (0-0.8); Eosinophils % (auto) 1.8 % (0.0-7.0); Hematocrit 38.1 % (41.0-53.0); Hemoglobin 12.4 g/dL (13.5-17.5); Lymphocytes # (auto) 0.5 10 ^3/uL (0.4-5.4); Lymphocytes % (auto) 8.1 % (10.0-50.0); Mean Corpuscular Hemoglobin 30.8 pg (28.0-32.0); Mean Corpuscular Hgb Conc. 32.5 g/dL (32.0-36.0); Monocytes # (auto) 0.4 10 ^3/uL (0-1.3); Monocytes % (auto) 6.4 % (0.0-12.0); Neutrophils # (auto) 4.9 10 ^3/uL (1.6-8.6); Neutrophils % (auto) 83.2 % (37.0-80.0); Nucleated Red Blood Cells % 0.1 %; Red Blood Cells 4.01 10^6/uL (4.5-5.90); Red Cell Distribution Width 15.2 % (11.8-14.3); White Blood Cell 5.9 10^3/uL (4.4-10.8)
[2023-05-09 10:35] LABS: INR 1.06 (0.9-1.15); Partial Thromboplastin Time 28.8 SEC (24.5-34.5)
[2023-05-09 10:51] LABS: Urine Bacteria NONE SEEN /hpf (None Seen); Urine Blood Negative /uL (Negative); Urine WBC <1 /hpf (0 - 3)
[2023-05-09 11:05] LABS: Potassium 3.7 mmol/L (3.5-5.1)
[2023-05-09 11:21] LABS: Albumin 3.4 g/dL (3.4-5.0); BUN/Creatinine Ratio 17.6 (10.0-20.0); Bilirubin, Total 0.5 mg/dL (0.2-1.0); Calcium 8.7 mg/dL (8.5-10.1); Total Protein 6.4 g/dL (6.4-8.2)
[~2023-05-10] VITALS: Ht 175.3 cm; Wt 77.1 kg
[~2023-05-10 06:28] MED LIST changes: -AMIT25TA12 PO; -ASPI-543 PO; +OMEP-434 PO; -RANI150C11 PO; +REVE175S IN; +[UNRECOGNIZED DRUG - CODE] PO
[2023-05-10] MEDS ORDERED: ceFAZolin 1GM/50ML 100 ML IV ONE (07:00)
[2023-05-10] MEDS ORDERED: BUPIVACAINE 0.5% P/F INJ 10 ML VIAL ONE (07:03)
[2023-05-10] MEDS ORDERED: CELECOXIB 100 MG CAP ONE (07:04)
[2023-05-10] MEDS ORDERED: GABAPENTIN 400 MG CAP ONE (07:05)
[2023-05-10] MEDS ORDERED: ACETAMINOPHEN IV 0 ML IV ONE (07:05)
[2023-05-10] MEDS ORDERED: fentaNYL CITRATE 100 MCG/2 ML VL ONE (07:27)
[2023-05-10] MEDS ORDERED: MIDAZOLAM HCL 2MG/2ML 2ml VIAL (1mg/ml) ONE (07:27)
[2023-05-10] MEDS ORDERED: LIDOCAINE 2% (LOCAL ANESTH.) PF 5ml SDV ONE (07:28)
[2023-05-10] MEDS ORDERED: ONDANSETRON HCL 4 MG/2 ML VIAL ONE (07:28)
[2023-05-10] MEDS ORDERED: PROPOFOL 10 MG/ML 20 ML IV ONE (07:29)
[2023-05-10 08:04] VITALS: PULSE 62; RESP 13; TEMP 97.3; O2SAT 100
[2023-05-10 08:49] VITALS: BP 137/71; PULSE 46; RESP 16; O2SAT 96
[2023-05-10] MEDS ORDERED: ONDANSETRON HCL 4 MG/2 ML VIAL IV PRN (10:30)
== END 2023-05-10 08:55 | disposition home or self-care (01) ==
LOC: SUR 06:28
PROVIDERS: ATTEND Orthopaedic Surgery Sports Medicine
DX: M65.332 Trigger finger, left middle finger (principal); M72.0 Palmar fascial fibromatosis [Dupuytren]; F41.9 Anxiety disorder, unspecified; I25.2 Old myocardial infarction; E03.9 Hypothyroidism, unspecified; J44.9 Chronic obstructive pulmonary disease, unspecified; I10 Essential (primary) hypertension; Z95.5 Presence of coronary angioplasty implant and graft; Z82.49 Family history of ischemic heart disease and other diseases of the circulatory system; Z87.891 Personal history of nicotine dependence; Z79.890 Hormone replacement therapy; Z98.890 Other specified postprocedural states; Z79.899 Other long term (current) drug therapy
CPT/HCPCS: 26055; 36415; 80053; 81001; 85025; 85610; 85730; J0690; J2001; J2250; J2405; J2704; J3010; J3490; J0131

== ENCOUNTER → 2023-05-18 | Outpatient (CLI) | payer OTHER ==
[2023-05-18 10:18] LABS: Urine WBC None Seen /hpf (0 - 3)
[2023-05-18 10:32] LABS: Basophils # (auto) 0.1 10 ^3/uL (0-0.2); Basophils % (auto) 1.1 % (0.0-2.0); Eosinophils # (auto) 0.1 10 ^3/uL (0-0.8); Hematocrit 37.6 % (41.0-53.0); Hemoglobin 12.3 g/dL (13.5-17.5); Lymphocytes # (auto) 0.5 10 ^3/uL (0.4-5.4); Lymphocytes % (auto) 9.7 % (10.0-50.0); Mean Corpuscular Hemoglobin 31.1 pg (28.0-32.0); Mean Corpuscular Hgb Conc. 32.7 g/dL (32.0-36.0); Monocytes # (auto) 0.4 10 ^3/uL (0-1.3); Monocytes % (auto) 6.5 % (0.0-12.0); Neutrophils # (auto) 4.4 10 ^3/uL (1.6-8.6); Neutrophils % (auto) 80.7 % (37.0-80.0); Nucleated Red Blood Cells % 0.1 %; Red Blood Cells 3.96 10^6/uL (4.5-5.90); Red Cell Distribution Width 15.1 % (11.8-14.3); White Blood Cell 5.5 10^3/uL (4.4-10.8)
[2023-05-18 10:45] LABS: Urine Bacteria NONE SEEN /hpf (None Seen); Urine Blood Negative /uL (Negative); Urine Clarity Clear (Clear); Urine Color Colorless (Yellow); Urine Protein, UAD Negative (Negative); Urine Specific Gravity 1.002 (1.001-1.035); Urine Urobilinogen Normal (Negative)
[2023-05-18 10:57] LABS: Albumin 3.5 g/dL (3.4-5.0); Potassium 4.3 mmol/L (3.5-5.1)
[2023-05-18 11:00] LABS: BUN/Creatinine Ratio 16.2 (10.0-20.0); Phosphorus 1.8 mg/dL (2.5-4.90); Uric Acid 4.6 mg/dL (3.5-7.2)
[2023-05-18 11:13] LABS: Protein, Urine 6.9 mg/dL (0.0-11.9); Urine Protein/Creatinine Ratio 0.46
== END | disposition home or self-care (01) ==
LOC: LAB 10:04
PROVIDERS: ATTEND Internal Medicine
DX: N18.31 Chronic kidney disease, stage 3a (principal); D63.1 Anemia in chronic kidney disease; R82.90 Unspecified abnormal findings in urine; E21.3 Hyperparathyroidism, unspecified; E78.5 Hyperlipidemia, unspecified; R80.9 Proteinuria, unspecified
CPT/HCPCS: 36415; 80069; 81001; 82306; 82570; 83970; 84156; 84550; 85025

== ENCOUNTER → 2023-07-18 | Outpatient (CLI) | payer OTHER | END | disposition home or self-care (01) | LOC: XYW 07:32 | PROVIDERS: ATTEND Internal Medicine | DX: I11.9 Hypertensive heart disease without heart failure (principal); J98.4 Other disorders of lung | CPT/HCPCS: 93306 ==

== ENCOUNTER → 2023-08-12 | Day surgery (SDC) | payer OTHER ==
[2023-08-10 09:41] LABS: Basophils # (auto) 0 10 ^3/uL (0-0.2); Basophils % (auto) 0.8 % (0.0-2.0); Eosinophils # (auto) 0.2 10 ^3/uL (0-0.8); Eosinophils % (auto) 3.6 % (0.0-7.0); Hematocrit 39.5 % (41.0-53.0); Lymphocytes # (auto) 0.6 10 ^3/uL (0.4-5.4); Lymphocytes % (auto) 10.7 % (10.0-50.0); Mean Corpuscular Hemoglobin 30.6 pg (28.0-32.0); Mean Corpuscular Hgb Conc. 32.8 g/dL (32.0-36.0); Mean Corpuscular Volume 93.2 fL (80.0-100.0); Monocytes # (auto) 0.4 10 ^3/uL (0-1.3); Monocytes % (auto) 7.9 % (0.0-12.0); Neutrophils # (auto) 4.3 10 ^3/uL (1.6-8.6); Red Blood Cells 4.24 10^6/uL (4.5-5.90); White Blood Cell 5.6 10^3/uL (4.4-10.8)
[2023-08-10 09:55] LABS: INR 1.06 (0.9-1.15); Partial Thromboplastin Time 27.5 SEC (24.5-34.5); Prothrombin Time 11.1 sec (9.3-11.8)
[2023-08-10 10:56] LABS: Alanine Aminotransferase 21 U/L (7-40); Albumin 4.3 g/dL (3.2-4.8); Alkaline Phosphatase 72 U/L (46-116); Anion Gap 7 (5-15); Aspartate Aminotransferase 23 U/L (13-40); BUN/Creatinine Ratio 13.5 (10.0-20.0); Bilirubin, Total 0.6 mg/dL (0.2-1.0); Blood Urea Nitrogen 19 mg/dL (9-23); Calcium 9.3 mg/dL (8.5-10.1); Carbon Dioxide 27 mmol/L (20-30); Chloride 107 mmol/L (98-107); Glucose 88 mg/dL (74-106); Potassium 4.8 mmol/L (3.5-5.1); Sodium 141 mmol/L (136-145); Total Protein 6.8 g/dL (5.7-8.2)
[~2023-08-12] VITALS: Ht 175.3 cm; Wt 77.1 kg
[~2023-08-12] MED LIST changes: +LIDOCAINE VISCOUS 2% 15ML UD ONE; +SODIUM CHLORIDE LOCK 10 ML ONE
[2023-08-12 13:30] VITALS: O2SAT 95
[2023-08-12] MEDS: fentaNYL CITRATE 100 MCG/2 ML VL ONE ×3 (13:36→13:43)
[2023-08-12] MEDS: diphenhdrAMINE HCL 50 MG/1 ML VL ONE ×2 (13:36→13:37)
[2023-08-12] MEDS: MIDAZOLAM HCL 5 MG/ML-1ML VIAL ONE ×2 (13:36→13:39)
[2023-08-12 13:49] VITALS: TEMP 97.4; O2SAT 95
[2023-08-12 14:19] VITALS: BP 131/66; PULSE 62; RESP 16; O2SAT 97
== END | disposition home or self-care (01) ==
LOC: GI 12:37
PROVIDERS: ATTEND Internal Medicine Gastroenterology
DX: K21.9 Gastro-esophageal reflux disease without esophagitis (principal); K44.9 Diaphragmatic hernia without obstruction or gangrene; K29.50 Unspecified chronic gastritis without bleeding; I10 Essential (primary) hypertension; E78.5 Hyperlipidemia, unspecified; Z79.899 Other long term (current) drug therapy; Z98.890 Other specified postprocedural states
CPT/HCPCS: 36415; 43239; 80053; 85025; 85610; 85730; J1200; J2250; J3010

== ENCOUNTER → 2023-08-16 | Day surgery (SDC) | payer OTHER ==
[~2023-08-16] VITALS: Ht 175.3 cm; Wt 77.1 kg
[~2023-08-16] MED LIST changes: -SODIUM CHLORIDE LOCK 10 ML ONE
[2023-08-16] MEDS: fentaNYL CITRATE 100 MCG/2 ML VL ONE ×2 (10:34→10:40)
[2023-08-16] MEDS: MIDAZOLAM HCL 2MG/2ML 2ml VIAL (1mg/ml) ONE ×3 (10:34→10:53)
[2023-08-16] MEDS: diphenhdrAMINE HCL 50 MG/1 ML VL ONE ×2 (10:34→10:37)
[2023-08-16 10:59] VITALS: TEMP 98; O2SAT 100
[2023-08-16 11:29] VITALS: BP 121/72; PULSE 64; RESP 15; O2SAT 96
== END | disposition home or self-care (01) ==
LOC: GI 09:28
PROVIDERS: ATTEND Internal Medicine Gastroenterology
DX: K52.9 Noninfective gastroenteritis and colitis, unspecified (principal); K63.5 Polyp of colon; R19.4 Change in bowel habit; K64.8 Other hemorrhoids
CPT/HCPCS: 45380; J1200; J2250; J3010; J7030; 99152; 99153

== ENCOUNTER → 2023-09-14 | Outpatient (CLI) | payer OTHER ==
[~2023-09-14] MED LIST changes: -LIDOCAINE VISCOUS 2% 15ML UD ONE
[2023-09-14 08:12] LABS: Basophils # (auto) 0 10 ^3/uL (0-0.2); Basophils % (auto) 0.9 % (0.0-2.0); Eosinophils # (auto) 0.2 10 ^3/uL (0-0.8); Hemoglobin 13.1 g/dL (13.5-17.5); Lymphocytes # (auto) 0.5 10 ^3/uL (0.4-5.4); Lymphocytes % (auto) 10.6 % (10.0-50.0); Mean Corpuscular Hemoglobin 30.6 pg (28.0-32.0); Mean Corpuscular Hgb Conc. 32.7 g/dL (32.0-36.0); Mean Corpuscular Volume 93.7 fL (80.0-100.0); Monocytes # (auto) 0.4 10 ^3/uL (0-1.3); Monocytes % (auto) 8.2 % (0.0-12.0); Neutrophils # (auto) 3.8 10 ^3/uL (1.6-8.6); Neutrophils % (auto) 76.3 % (37.0-80.0); Red Blood Cells 4.27 10^6/uL (4.5-5.90); Red Cell Distribution Width 15.5 % (11.8-14.3)
[2023-09-14 08:46] LABS: Alanine Aminotransferase 16 U/L (7-40); Albumin 4.4 g/dL (3.2-4.8); Alkaline Phosphatase 74 U/L (46-116); Anion Gap 6 (5-15); Aspartate Aminotransferase 21 U/L (13-40); BUN/Creatinine Ratio 13.7 (10.0-20.0); Blood Urea Nitrogen 19 mg/dL (9-23); Calcium 9.5 mg/dL (8.5-10.1); Carbon Dioxide 24 mmol/L (20-30); Chloride 109 mmol/L (98-107); Cholesterol 115 mg/dL (< 200); Glucose 92 mg/dL (74-106); HDL Cholesterol 41 mg/dL (40-59); LDL Cholesterol 62 mg/dL (< 100); Potassium 4.1 mmol/L (3.5-5.1); Sodium 139 mmol/L (136-145); Triglycerides 70 mg/dL (< 150)
[2023-09-14 08:47] LABS: Bilirubin, Total 0.5 mg/dL (0.2-1.0); Total Protein 6.7 g/dL (5.7-8.2)
== END | disposition home or self-care (01) ==
LOC: LAB 07:58
PROVIDERS: ATTEND Nurse Practitioner Family
DX: Z00.01 Encounter for general adult medical examination with abnormal findings (principal); I12.9 Hypertensive chronic kidney disease with stage 1 through stage 4 chronic kidney disease, or unspecified chronic kidney disease; N18.30 Chronic kidney disease, stage 3 unspecified; M65.332 Trigger finger, left middle finger
CPT/HCPCS: 36415; 80053; 80061; 82306; 84153; 85025

== ENCOUNTER → 2023-11-18 | Outpatient (CLI) | payer OTHER ==
[2023-11-18 11:31] LABS: Basophils # (auto) 0.1 10 ^3/uL (0-0.2); Basophils % (auto) 0.9 % (0.0-2.0); Eosinophils # (auto) 0.1 10 ^3/uL (0-0.8); Eosinophils % (auto) 2.1 % (0.0-7.0); Hematocrit 35.9 % (41.0-53.0); Hemoglobin 11.9 g/dL (13.5-17.5); Lymphocytes # (auto) 0.5 10 ^3/uL (0.4-5.4); Mean Corpuscular Hemoglobin 30.6 pg (28.0-32.0); Mean Corpuscular Hgb Conc. 33.2 g/dL (32.0-36.0); Mean Corpuscular Volume 92.1 fL (80.0-100.0); Monocytes # (auto) 0.6 10 ^3/uL (0-1.3); Monocytes % (auto) 8.4 % (0.0-12.0); Neutrophils # (auto) 5.3 10 ^3/uL (1.6-8.6); Neutrophils % (auto) 80.6 % (37.0-80.0); Red Cell Distribution Width 16.2 % (11.8-14.3); White Blood Cell 6.6 10^3/uL (4.4-10.8)
[2023-11-18 11:39] LABS: Urine Bacteria NONE SEEN /hpf (None Seen); Urine Blood Negative /uL (Negative); Urine Clarity Clear (Clear); Urine Color Colorless (Yellow); Urine Protein, UAD Negative (Negative); Urine Specific Gravity 1.003 (1.001-1.035); Urine Urobilinogen Normal (Negative); Urine WBC <1 /hpf (0 - 3)
[2023-11-18 12:11] LABS: Potassium 3.9 mmol/L (3.5-5.1)
[2023-11-18 12:12] LABS: Calcium 9.1 mg/dL (8.5-10.1)
[2023-11-18 12:14] LABS: Protein, Urine < 6.0 mg/dL (0.0-11.9)
[2023-11-18 12:17] LABS: Albumin 4.2 g/dL (3.2-4.8); BUN/Creatinine Ratio 17.8 (10.0-20.0)
[2023-11-18 12:19] LABS: Phosphorus 2.6 mg/dL (2.4-5.1)
[2023-11-18 13:04] LABS: Uric Acid 4.3 mg/dL (3.7-9.2)
== END | disposition home or self-care (01) ==
LOC: LAB 11:09
PROVIDERS: ATTEND Internal Medicine
DX: N18.31 Chronic kidney disease, stage 3a (principal); E21.3 Hyperparathyroidism, unspecified; E78.5 Hyperlipidemia, unspecified; D63.1 Anemia in chronic kidney disease; M10.9 Gout, unspecified; R80.9 Proteinuria, unspecified; R82.90 Unspecified abnormal findings in urine
CPT/HCPCS: 36415; 80069; 81001; 82306; 82570; 83970; 84156; 84550; 85025

== ENCOUNTER 2024-03-28 10:39 | Emergency (ER) | payer OTHER ==
[~2024-03-28] VITALS: Ht 175.3 cm; Wt 71.7 kg
[~2024-03-28 10:39] MED LIST changes: +PANC6000 PO; -[UNRECOGNIZED DRUG - CODE] PO
[2024-03-28 12:21] VITALS: BP 111/72; PULSE 77; RESP 18; TEMP 98.6; O2SAT 99
[2024-03-28] MEDS: HYDROcodone-ACET 5/325MG TAB PO ONE (12:37)
[2024-03-28] MEDS ORDERED: HYDR-4902 PO (13:20)
== END 2024-03-28 13:27 | disposition home or self-care (01) ==
LOC: ER 10:39
DX: M13.852 Other specified arthritis, left hip (principal); I25.10 Atherosclerotic heart disease of native coronary artery without angina pectoris; I10 Essential (primary) hypertension; Z79.1 Long term (current) use of non-steroidal anti-inflammatories (NSAID); Z98.890 Other specified postprocedural states
CPT/HCPCS: 73030

== ENCOUNTER → 2024-05-28 | Outpatient (CLI) | payer OTHER ==
[~2024-05-28] MED LIST changes: +HYDR-4902 PO; +PANC1CAP53 PO; -PANC6000 PO
[2024-05-28 10:11] LABS: Urine Bacteria None Seen /hpf (None Seen); Urine WBC None Seen /hpf (0 - 3)
[2024-05-28 10:16] LABS: Basophils # (auto) 0 10 ^3/uL (0-0.2); Basophils % (auto) 0.5 % (0.0-2.0); Eosinophils # (auto) 0.1 10 ^3/uL (0-0.8); Eosinophils % (auto) 1.1 % (0.0-7.0); Hematocrit 35.6 % (41.0-53.0); Hemoglobin 11.6 g/dL (13.5-17.5); Lymphocytes # (auto) 0.4 10 ^3/uL (0.4-5.4); Lymphocytes % (auto) 5.9 % (10.0-50.0); Mean Corpuscular Hemoglobin 30.2 pg (28.0-32.0); Mean Corpuscular Hgb Conc. 32.5 g/dL (32.0-36.0); Monocytes # (auto) 0.5 10 ^3/uL (0-1.3); Neutrophils % (auto) 85.5 % (37.0-80.0); Platelet Count (auto) 256 10^3/uL (140-450); Red Blood Cells 3.83 10^6/uL (4.5-5.90); Red Cell Distribution Width 16.6 % (11.8-14.3); White Blood Cell 7.1 10^3/uL (4.4-10.8)
[2024-05-28 10:32] LABS: Urine Blood Negative /uL (Negative); Urine Clarity Clear (Clear); Urine Color Light-Yellow (Yellow); Urine Protein, UAD Negative (Negative); Urine Specific Gravity 1.012 (1.001-1.035); Urine Urobilinogen Normal (Negative)
[2024-05-28 11:01] LABS: Potassium 3.8 mmol/L (3.5-5.1)
[2024-05-28 11:02] LABS: Calcium 9.5 mg/dL (8.7-10.4)
[2024-05-28 11:03] LABS: Creatinine, Urine 61.55 mg/dL (30.0-125.0); Urine Protein/Creatinine Ratio 0.32
[2024-05-28 11:07] LABS: Albumin 3.9 g/dL (3.2-4.8); BUN/Creatinine Ratio 18.5 (10.0-20.0)
[2024-05-28 11:09] LABS: Phosphorus 2.3 mg/dL (2.4-5.1)
[2024-05-28 11:45] LABS: Uric Acid 3.5 mg/dL (3.7-9.2)
== END | disposition home or self-care (01) ==
LOC: LAB 09:58
PROVIDERS: ATTEND Internal Medicine
DX: E21.3 Hyperparathyroidism, unspecified (principal); N18.31 Chronic kidney disease, stage 3a; M10.9 Gout, unspecified; R82.90 Unspecified abnormal findings in urine; D63.1 Anemia in chronic kidney disease; R80.9 Proteinuria, unspecified; E78.5 Hyperlipidemia, unspecified
CPT/HCPCS: 36415; 80069; 81001; 82306; 82570; 83970; 84156; 84550; 85025

== ENCOUNTER → 2024-06-01 | Outpatient (CLI) | payer OTHER ==
[~2024-06-01] VITALS: Ht 175.3 cm; Wt 68.9 kg
[2024-06-01] MEDS: ADENOSINE 58 MG in GIVE UN-DILUTED 0 ML IV STA (10:51)
== END | disposition home or self-care (01) ==
LOC: XYW 09:18
PROVIDERS: ATTEND Internal Medicine
DX: R06.02 Shortness of breath (principal); J44.9 Chronic obstructive pulmonary disease, unspecified; I10 Essential (primary) hypertension
CPT/HCPCS: 78452; 93017; A9500; J0153

== ENCOUNTER → 2024-07-19 | Outpatient (CLI) | payer OTHER ==
[2024-07-19 10:53] LABS: Basophils # (auto) 0 10 ^3/uL (0-0.2); Basophils % (auto) 0.5 % (0.0-2.0); Eosinophils # (auto) 0.1 10 ^3/uL (0-0.8); Eosinophils % (auto) 0.8 % (0.0-7.0); Hemoglobin 12.3 g/dL (13.5-17.5); Lymphocytes # (auto) 0.4 10 ^3/uL (0.4-5.4); Lymphocytes % (auto) 4.9 % (10.0-50.0); Mean Corpuscular Hemoglobin 30.5 pg (28.0-32.0); Mean Corpuscular Hgb Conc. 32.3 g/dL (32.0-36.0); Mean Corpuscular Volume 94.5 fL (80.0-100.0); Monocytes # (auto) 0.6 10 ^3/uL (0-1.3); Monocytes % (auto) 7.8 % (0.0-12.0); Neutrophils # (auto) 6.6 10 ^3/uL (1.6-8.6); Platelet Count (auto) 192 10^3/uL (140-450); Red Blood Cells 4.02 10^6/uL (4.5-5.90); White Blood Cell 7.6 10^3/uL (4.4-10.8)
[2024-07-19 11:08] LABS: INR 1.04 (0.9-1.15)
[2024-07-19 11:26] LABS: Folate (Folic Acid) 9.35 ng/mL (>5.38)
== END | disposition home or self-care (01) ==
LOC: LAB 10:24
PROVIDERS: ATTEND Internal Medicine
DX: R91.1 Solitary pulmonary nodule (principal); D64.9 Anemia, unspecified
CPT/HCPCS: 36415; 82607; 82746; 83540; 85025; 85610; 85730

== ENCOUNTER → 2024-07-23 | Outpatient (CLI) | payer OTHER ==
[2024-07-23] VITALS (12 sets, daily range): BP systolic 95–134; BP diastolic 62–76; PULSE 62–81; RESP 13–22; TEMP 98.5; O2SAT 95–97
[~2024-07-23] MED LIST changes: +LIDOCAINE 2%HCL (LOCAL ANESTH.) INJ 10ml MDV ONE
== END | disposition home or self-care (01) ==
LOC: CT 08:28
PROVIDERS: ATTEND Internal Medicine
DX: R91.1 Solitary pulmonary nodule (principal); C34.32 Malignant neoplasm of lower lobe, left bronchus or lung; F41.9 Anxiety disorder, unspecified; Z79.01 Long term (current) use of anticoagulants; Z87.891 Personal history of nicotine dependence; Z95.5 Presence of coronary angioplasty implant and graft; Z82.49 Family history of ischemic heart disease and other diseases of the circulatory system
CPT/HCPCS: 32408; 71045; 88305; 88342; J2003; 10005; 71250; 77012

== ENCOUNTER → 2024-08-14 | Outpatient (CLI) | payer OTHER ==
[~2024-08-14] MED LIST changes: -LIDOCAINE 2%HCL (LOCAL ANESTH.) INJ 10ml MDV ONE
[2024-08-14 12:39] LABS: Basophils # (auto) 0 10 ^3/uL (0-0.2); Basophils % (auto) 0.6 % (0.0-2.0); Eosinophils # (auto) 0.1 10 ^3/uL (0-0.8); Eosinophils % (auto) 0.9 % (0.0-7.0); Hemoglobin 11.7 g/dL (13.5-17.5); Lymphocytes # (auto) 0.5 10 ^3/uL (0.4-5.4); Mean Corpuscular Hemoglobin 31.2 pg (28.0-32.0); Mean Corpuscular Hgb Conc. 33.3 g/dL (32.0-36.0); Mean Corpuscular Volume 93.6 fL (80.0-100.0); Monocytes # (auto) 0.6 10 ^3/uL (0-1.3); Monocytes % (auto) 7.6 % (0.0-12.0); Neutrophils # (auto) 6.8 10 ^3/uL (1.6-8.6); Neutrophils % (auto) 84.9 % (37.0-80.0); Platelet Count (auto) 198 10^3/uL (140-450); Red Blood Cells 3.74 10^6/uL (4.5-5.90); Red Cell Distribution Width 16.3 % (11.8-14.3); White Blood Cell 8.1 10^3/uL (4.4-10.8)
[2024-08-14 13:55] LABS: Alanine Aminotransferase 11 U/L (7-40); Alkaline Phosphatase 52 U/L (46-116); Anion Gap 6 (5-15); Aspartate Aminotransferase 13 U/L (13-40); BUN/Creatinine Ratio 16.7 (10.0-20.0); Bilirubin, Total 0.5 mg/dL (0.2-1.0); Blood Urea Nitrogen 23 mg/dL (9-23); Calcium 10.1 mg/dL (8.7-10.4); Carbon Dioxide 27 mmol/L (20-31); Chloride 104 mmol/L (98-107); Glucose 117 mg/dL (74-106); Potassium 3.9 mmol/L (3.5-5.1); Sodium 137 mmol/L (136-145); Total Protein 6.5 g/dL (5.7-8.2)
== END | disposition home or self-care (01) ==
LOC: LAB 12:17
PROVIDERS: ATTEND Student in an Organized Health Care Education/Training Program
DX: C34.92 Malignant neoplasm of unspecified part of left bronchus or lung (principal)
CPT/HCPCS: 36415; 80053; 83615; 85025

== ENCOUNTER → 2024-10-02 | Outpatient (CLI) | payer OTHER ==
[2024-10-02 10:58] LABS: Basophils # (auto) 0 10 ^3/uL (0-0.2); Basophils % (auto) 0.4 % (0.0-2.0); Eosinophils # (auto) 0 10 ^3/uL (0-0.8); Eosinophils % (auto) 0.3 % (0.0-7.0); Hematocrit 36.3 % (41.0-53.0); Hemoglobin 11.7 g/dL (13.5-17.5); Lymphocytes # (auto) 0.4 10 ^3/uL (0.4-5.4); Lymphocytes % (auto) 3.5 % (10.0-50.0); Mean Corpuscular Hgb Conc. 32.2 g/dL (32.0-36.0); Mean Corpuscular Volume 93.2 fL (80.0-100.0); Monocytes # (auto) 0.7 10 ^3/uL (0-1.3); Monocytes % (auto) 5.3 % (0.0-12.0); Neutrophils # (auto) 11.3 10 ^3/uL (1.6-8.6); Neutrophils % (auto) 90.5 % (37.0-80.0); Platelet Count (auto) 253 10^3/uL (140-450); Red Blood Cells 3.89 10^6/uL (4.5-5.90); Red Cell Distribution Width 15.8 % (11.8-14.3); White Blood Cell 12.5 10^3/uL (4.4-10.8)
[2024-10-02 11:35] LABS: Alanine Aminotransferase 14 U/L (7-40); Alkaline Phosphatase 51 U/L (46-116); Calcium 10.3 mg/dL (8.7-10.4); Carbon Dioxide 22 mmol/L (20-31); Chloride 102 mmol/L (98-107)
[2024-10-02 11:36] LABS: Albumin 4.2 g/dL (3.2-4.8); Anion Gap 8 (5-15); Aspartate Aminotransferase 18 U/L (13-40); BUN/Creatinine Ratio 22.5 (10.0-20.0); Bilirubin, Total 0.6 mg/dL (0.2-1.0); Glucose 101 mg/dL (74-106); Potassium 4.3 mmol/L (3.5-5.1); Total Protein 7.1 g/dL (5.7-8.2)
[2024-10-02 11:39] LABS: Blood Urea Nitrogen 36 mg/dL (9-23); Sodium 132 mmol/L (136-145)
== END | disposition home or self-care (01) ==
LOC: LAB 10:40
DX: C34.92 Malignant neoplasm of unspecified part of left bronchus or lung (principal)
CPT/HCPCS: 36415; 80053; 83615; 85025

== ENCOUNTER → 2024-10-09 | Outpatient (CLI) | payer OTHER ==
[2024-10-09 10:58] LABS: Basophils # (auto) 0 10 ^3/uL (0-0.2); Basophils % (auto) 0.2 % (0.0-2.0); Eosinophils # (auto) 0 10 ^3/uL (0-0.8); Hematocrit 32.9 % (41.0-53.0); Hemoglobin 11.1 g/dL (13.5-17.5); Lymphocytes # (auto) 0.4 10 ^3/uL (0.4-5.4); Lymphocytes % (auto) 2.8 % (10.0-50.0); Mean Corpuscular Hemoglobin 31.7 pg (28.0-32.0); Mean Corpuscular Hgb Conc. 33.8 g/dL (32.0-36.0); Mean Corpuscular Volume 93.9 fL (80.0-100.0); Monocytes # (auto) 0.3 10 ^3/uL (0-1.3); Monocytes % (auto) 2.2 % (0.0-12.0); Neutrophils # (auto) 13.7 10 ^3/uL (1.6-8.6); Neutrophils % (auto) 94.8 % (37.0-80.0); Platelet Count (auto) 273 10^3/uL (140-450); Red Cell Distribution Width 15.2 % (11.8-14.3); White Blood Cell 14.4 10^3/uL (4.4-10.8)
[2024-10-09 10:59] LABS: Alanine Aminotransferase 10 U/L (7-40); Alkaline Phosphatase 51 U/L (46-116); Anion Gap 9 (5-15); BUN/Creatinine Ratio 23.7 (10.0-20.0); Calcium 9.8 mg/dL (8.7-10.4); Carbon Dioxide 22 mmol/L (20-31); Chloride 104 mmol/L (98-107); Glucose 105 mg/dL (74-106); Potassium 4.4 mmol/L (3.5-5.1)
[2024-10-09 11:00] LABS: Albumin 3.8 g/dL (3.2-4.8)
[2024-10-09 11:01] LABS: Bilirubin, Total 0.5 mg/dL (0.2-1.0); Total Protein 6.4 g/dL (5.7-8.2)
[2024-10-09 11:07] LABS: Aspartate Aminotransferase 12 U/L (13-40); Blood Urea Nitrogen 36 mg/dL (9-23); Sodium 135 mmol/L (136-145)
== END | disposition home or self-care (01) ==
LOC: LAB 09:46
PROVIDERS: ATTEND Student in an Organized Health Care Education/Training Program
DX: C34.92 Malignant neoplasm of unspecified part of left bronchus or lung (principal)
CPT/HCPCS: 36415; 80053; 83615; 85025

== ENCOUNTER → 2024-10-23 | Outpatient (CLI) | payer OTHER ==
[2024-10-23 11:06] LABS: Basophils # (auto) 0 10 ^3/uL (0-0.2); Basophils % (auto) 0.6 % (0.0-2.0); Eosinophils # (auto) 0 10 ^3/uL (0-0.8); Eosinophils % (auto) 0.4 % (0.0-7.0); Hematocrit 32.8 % (41.0-53.0); Hemoglobin 10.5 g/dL (13.5-17.5); Lymphocytes # (auto) 0.1 10 ^3/uL (0.4-5.4); Mean Corpuscular Hemoglobin 30.2 pg (28.0-32.0); Mean Corpuscular Volume 94.1 fL (80.0-100.0); Monocytes # (auto) 0.4 10 ^3/uL (0-1.3); Neutrophils # (auto) 3.4 10 ^3/uL (1.6-8.6); Nucleated Red Blood Cells % 0.1 %; Platelet Count (auto) 164 10^3/uL (140-450); Red Blood Cells 3.49 10^6/uL (4.5-5.90); Red Cell Distribution Width 15.7 % (11.8-14.3)
[2024-10-23 11:46] LABS: Alanine Aminotransferase 17 U/L (7-40); Anion Gap 8 (5-15); BUN/Creatinine Ratio 16.8 (10.0-20.0); Blood Urea Nitrogen 19 mg/dL (9-23); Carbon Dioxide 24 mmol/L (20-31); Chloride 106 mmol/L (98-107); Potassium 3.8 mmol/L (3.5-5.1); Sodium 138 mmol/L (136-145)
[2024-10-23 11:47] LABS: Albumin 3.8 g/dL (3.2-4.8); Aspartate Aminotransferase 15 U/L (13-40); Bilirubin, Total 0.3 mg/dL (0.2-1.0); Total Protein 6.1 g/dL (5.7-8.2)
[2024-10-23 11:53] LABS: Alkaline Phosphatase 43 U/L (46-116); Calcium 8.6 mg/dL (8.7-10.4); Glucose 107 mg/dL (74-106)
== END | disposition home or self-care (01) ==
LOC: LAB 10:32
PROVIDERS: ATTEND Student in an Organized Health Care Education/Training Program
DX: C34.92 Malignant neoplasm of unspecified part of left bronchus or lung (principal)
CPT/HCPCS: 36415; 80053; 83615; 85025

== ENCOUNTER → 2024-10-30 | Outpatient (CLI) | payer OTHER ==
[2024-10-30 11:08] LABS: Basophils # (auto) 0 10 ^3/uL (0-0.2); Basophils % (auto) 0.4 % (0.0-2.0); Eosinophils # (auto) 0 10 ^3/uL (0-0.8); Eosinophils % (auto) 1.3 % (0.0-7.0); Hematocrit 32.5 % (41.0-53.0); Hemoglobin 10.9 g/dL (13.5-17.5); Lymphocytes # (auto) 0.1 10 ^3/uL (0.4-5.4); Lymphocytes % (auto) 3.5 % (10.0-50.0); Mean Corpuscular Hemoglobin 30.7 pg (28.0-32.0); Mean Corpuscular Hgb Conc. 33.5 g/dL (32.0-36.0); Mean Corpuscular Volume 91.7 fL (80.0-100.0); Monocytes # (auto) 0.1 10 ^3/uL (0-1.3); Monocytes % (auto) 2.9 % (0.0-12.0); Neutrophils % (auto) 91.9 % (37.0-80.0); Platelet Count (auto) 129 10^3/uL (140-450); Red Blood Cells 3.54 10^6/uL (4.5-5.90); Red Cell Distribution Width 15.3 % (11.8-14.3); White Blood Cell 3.3 10^3/uL (4.4-10.8)
[2024-10-30 12:03] LABS: Alanine Aminotransferase 14 U/L (7-40); Albumin 4.3 g/dL (3.2-4.8); Alkaline Phosphatase 51 U/L (46-116); Anion Gap 9 (5-15); Aspartate Aminotransferase 13 U/L (13-40); BUN/Creatinine Ratio 17.6 (10.0-20.0); Calcium 10.3 mg/dL (8.7-10.4); Carbon Dioxide 26 mmol/L (20-31); Chloride 102 mmol/L (98-107); Glucose 84 mg/dL (74-106); Potassium 4.6 mmol/L (3.5-5.1); Sodium 137 mmol/L (136-145)
[2024-10-30 12:04] LABS: Bilirubin, Total 0.6 mg/dL (0.2-1.0); Total Protein 6.6 g/dL (5.7-8.2)
[2024-10-30 12:05] LABS: Blood Urea Nitrogen 26 mg/dL (9-23)
== END | disposition home or self-care (01) ==
LOC: LAB 08:41
PROVIDERS: ATTEND Student in an Organized Health Care Education/Training Program
DX: C34.92 Malignant neoplasm of unspecified part of left bronchus or lung (principal)
CPT/HCPCS: 36415; 80053; 83615; 85025

== ENCOUNTER → 2024-11-06 | Outpatient (CLI) | payer OTHER ==
[2024-11-06 09:09] LABS: Basophils # (auto) 0 10 ^3/uL (0-0.2); Eosinophils # (auto) 0 10 ^3/uL (0-0.8); Lymphocytes # (auto) 0.1 10 ^3/uL (0.4-5.4); Monocytes # (auto) 0.1 10 ^3/uL (0-1.3); Neutrophils # (auto) 0.6 10 ^3/uL (1.6-8.6); Red Cell Distribution Width 15.7 % (11.8-14.3)
[2024-11-06 09:11] LABS: Eosinophils % (auto) 4.1 % (0.0-7.0); Hematocrit 29.7 % (41.0-53.0); Hemoglobin 9.7 g/dL (13.5-17.5); Lymphocytes % (auto) 11.6 % (10.0-50.0); Mean Corpuscular Hgb Conc. 32.6 g/dL (32.0-36.0); Mean Corpuscular Volume 91.9 fL (80.0-100.0); Monocytes % (auto) 10.5 % (0.0-12.0); Neutrophils % (auto) 71.8 % (37.0-80.0); Nucleated Red Blood Cells % 0.3 %; Platelet Count (auto) 146 10^3/uL (140-450); Red Blood Cells 3.23 10^6/uL (4.5-5.90)
[2024-11-06 09:51] LABS: White Blood Cell 0.8 10^3/uL (4.4-10.8)
[2024-11-06 10:16] LABS: Alanine Aminotransferase 16 U/L (7-40); Albumin 4.3 g/dL (3.2-4.8); Alkaline Phosphatase 50 U/L (46-116); Anion Gap 6 (5-15); Aspartate Aminotransferase 14 U/L (13-40); BUN/Creatinine Ratio 22.8 (10.0-20.0); Carbon Dioxide 24 mmol/L (20-31); Chloride 102 mmol/L (98-107); Glucose 104 mg/dL (74-106); Potassium 4.8 mmol/L (3.5-5.1)
[2024-11-06 10:17] LABS: Bilirubin, Total 0.8 mg/dL (0.2-1.0); Total Protein 6.5 g/dL (5.7-8.2)
[2024-11-06 10:27] LABS: Blood Urea Nitrogen 37 mg/dL (9-23); Calcium 10.7 mg/dL (8.7-10.4); Sodium 132 mmol/L (136-145)
== END | disposition home or self-care (01) ==
LOC: LAB 08:43
PROVIDERS: ATTEND Student in an Organized Health Care Education/Training Program
DX: C34.92 Malignant neoplasm of unspecified part of left bronchus or lung (principal)
CPT/HCPCS: 36415; 80053; 83615; 85025

== ENCOUNTER → 2024-11-13 | Outpatient (CLI) | payer OTHER ==
[2024-11-13 10:51] LABS: Hematocrit 29.2 % (41.0-53.0); Hemoglobin 9.6 g/dL (13.5-17.5); Mean Corpuscular Hemoglobin 30.7 pg (28.0-32.0); Mean Corpuscular Volume 93.2 fL (80.0-100.0); Platelet Count (auto) 179 10^3/uL (140-450); Red Blood Cells 3.14 10^6/uL (4.5-5.90); Red Cell Distribution Width 16.5 % (11.8-14.3); White Blood Cell 2.4 10^3/uL (4.4-10.8)
[2024-11-13 10:57] LABS: Basophils % (manual) 0 (0.0-2.0); Blast Cells 0; Eosinophils % (manual) 0 (0-7); Metamyelocytes % 0; Monocytes % (manual) 0 (0-12); Myelocytes % 0; Promyelocytes % 0; Reactive Lymphocytes 0
[2024-11-13 11:03] LABS: Alanine Aminotransferase 17 U/L (7-40); Anion Gap 10 (5-15); BUN/Creatinine Ratio 29.7 (10.0-20.0); Calcium 9.7 mg/dL (8.7-10.4); Carbon Dioxide 22 mmol/L (20-31); Chloride 105 mmol/L (98-107); Potassium 4.2 mmol/L (3.5-5.1); Sodium 137 mmol/L (136-145)
[2024-11-13 11:04] LABS: Albumin 4.1 g/dL (3.2-4.8); Aspartate Aminotransferase 15 U/L (13-40); Bilirubin, Total 0.4 mg/dL (0.2-1.0); Total Protein 6.4 g/dL (5.7-8.2)
[2024-11-13 11:24] LABS: Alkaline Phosphatase 45 U/L (46-116); Blood Urea Nitrogen 35 mg/dL (9-23)
[2024-11-13 11:59] LABS: Glucose 98 mg/dL (74-106)
[2024-11-13 12:53] LABS: Band Neutrophils % (manual) 7; Lymphocytes % (manual) 29 (10.0-50.0); Platelet Estimate Adequate
== END | disposition home or self-care (01) ==
LOC: LAB 09:22
PROVIDERS: ATTEND Student in an Organized Health Care Education/Training Program
DX: C34.92 Malignant neoplasm of unspecified part of left bronchus or lung (principal)
CPT/HCPCS: 36415; 80053; 83615; 85007; 85027

== ENCOUNTER → 2024-11-19 | Outpatient (CLI) | payer OTHER ==
[2024-11-19 11:47] LABS: Hematocrit 29.6 % (41.0-53.0); Hemoglobin 9.7 g/dL (13.5-17.5); Mean Corpuscular Hemoglobin 30.6 pg (28.0-32.0); Mean Corpuscular Hgb Conc. 32.8 g/dL (32.0-36.0); Mean Corpuscular Volume 93.3 fL (80.0-100.0); Platelet Count (auto) 104 10^3/uL (140-450); Red Blood Cells 3.17 10^6/uL (4.5-5.90); Red Cell Distribution Width 18.1 % (11.8-14.3); White Blood Cell 2.7 10^3/uL (4.4-10.8)
[2024-11-19 11:53] LABS: Basophils % (manual) 0 (0.0-2.0); Blast Cells 0; Eosinophils % (manual) 0 (0-7); Metamyelocytes % 0; Myelocytes % 0; Promyelocytes % 0; Reactive Lymphocytes 0
[2024-11-19 12:24] LABS: Alanine Aminotransferase 17 U/L (7-40); Albumin 4.3 g/dL (3.2-4.8); Alkaline Phosphatase 52 U/L (46-116); Anion Gap 9 (5-15); Aspartate Aminotransferase 13 U/L (13-40); Bilirubin, Total 0.5 mg/dL (0.2-1.0); Carbon Dioxide 25 mmol/L (20-31); Chloride 102 mmol/L (98-107); Potassium 4.8 mmol/L (3.5-5.1); Sodium 136 mmol/L (136-145); Total Protein 6.5 g/dL (5.7-8.2)
[2024-11-19 12:29] LABS: Blood Urea Nitrogen 41 mg/dL (9-23); Glucose 140 mg/dL (74-106)
[2024-11-19 13:29] LABS: Anisocytosis Slight; Band Neutrophils % (manual) 3; Lymphocytes % (manual) 3 (10.0-50.0); Monocytes % (manual) 2 (0-12); Platelet Estimate Decreased; Tear Drop Cells FEW
== END | disposition home or self-care (01) ==
LOC: LAB 11:06
PROVIDERS: ATTEND Student in an Organized Health Care Education/Training Program
DX: C34.92 Malignant neoplasm of unspecified part of left bronchus or lung (principal)
CPT/HCPCS: 36415; 80053; 83615; 85007; 85027

== ENCOUNTER → 2024-11-27 | Outpatient (CLI) | payer OTHER ==
[2024-11-27 10:39] LABS: Hematocrit 27.1 % (41.0-53.0); Hemoglobin 8.9 g/dL (13.5-17.5)
[2024-11-27 10:43] LABS: Mean Corpuscular Hemoglobin 30.8 pg (28.0-32.0); Mean Corpuscular Hgb Conc. 32.7 g/dL (32.0-36.0); Platelet Count (auto) 66 10^3/uL (140-450); Red Blood Cells 2.89 10^6/uL (4.5-5.90); Red Cell Distribution Width 18.3 % (11.8-14.3); White Blood Cell 4.2 10^3/uL (4.4-10.8)
[2024-11-27 10:48] LABS: Basophils % (manual) 0 (0.0-2.0); Blast Cells 0; Eosinophils % (manual) 0 (0-7); Metamyelocytes % 0; Myelocytes % 0; Promyelocytes % 0; Reactive Lymphocytes 0
[2024-11-27 11:19] LABS: Band Neutrophils % (manual) 3; Lymphocytes % (manual) 3 (10.0-50.0); Monocytes % (manual) 1 (0-12); Platelet Estimate Decreased
[2024-11-27 11:29] LABS: Alanine Aminotransferase 21 U/L (7-40); Alkaline Phosphatase 54 U/L (46-116); Anion Gap 8 (5-15); BUN/Creatinine Ratio 36.9 (10.0-20.0); Calcium 9.4 mg/dL (8.7-10.4); Carbon Dioxide 22 mmol/L (20-31); Chloride 105 mmol/L (98-107); Potassium 4.5 mmol/L (3.5-5.1)
[2024-11-27 11:30] LABS: Albumin 4.3 g/dL (3.2-4.8); Aspartate Aminotransferase 16 U/L (13-40); Bilirubin, Total 0.6 mg/dL (0.2-1.0); Total Protein 6.1 g/dL (5.7-8.2)
[2024-11-27 11:38] LABS: Blood Urea Nitrogen 41 mg/dL (9-23); Glucose 107 mg/dL (74-106); Sodium 135 mmol/L (136-145)
== END | disposition home or self-care (01) ==
LOC: LAB 10:09
PROVIDERS: ATTEND Student in an Organized Health Care Education/Training Program
DX: C34.92 Malignant neoplasm of unspecified part of left bronchus or lung (principal)
CPT/HCPCS: 36415; 80053; 83615; 85007; 85027

== ENCOUNTER 2024-12-11 11:12 | Inpatient (IN) | payer OTHER ==
[~2024-12-11] VITALS: Ht 176.5 cm; Wt 61.1 kg
[2024-12-11] VITALS (8 sets, daily range): BP systolic 107–112; BP diastolic 58–65; PULSE 77–119; RESP 16–20; TEMP 98–98.2; O2SAT 95–100
--- NOTE | 2024-12-11 11:26 | ED.PDOC ---
SOB-HPI HPI Comments 74 year old male presents to the ED with chief complaint of SOB. Patient reports that he has been experiencing SOB with associated productive cough for the past week. Patient relays that he has history of stage 3 lung cancer, being treated with chemotherapy and radiation therapy recently. Patient denies any hemoptysis, N/V, chest pain, dizziness, fevers, or chills. Time Seen by MD: 11:22 Primary Care Provider: EVAN Reviewed notes: Nurses Notes, Medications, Allergies Information Source: Patient, Spouse Mode of Arrival: Ambulatory Severity: Moderate Timing: Weeks Duration: Since onset Context: At Rest PE Risk Factors: None History of: None Prehospital treatment: None Modifying Factors: Exertion Associated Signs and Symptoms: Cough If cough with SOB: Productive Past Medical History PAST MEDICAL HISTORY: CAD, Cancer (Stage 3 lung cancer), HTN, [place] Surgical History: PTCA Family History Family History: Reviewed,noncontributory to illness, Unknown Social History Smoker: Non-Smoker Alcohol: Denies ETOH Use Drugs: Denies Drug Use Lives In: Home Constitutional: denies: chills, diaphoresis, fatigue, fever, malaise, sweats, weakness, others EENTM: denies: blurred vision, double vision, ear bleeding, ear discharge, ear drainage, ear pain, ear ringing, eye pain, eye redness, hearing loss, mouth pain, mouth swelling, nasal discharge, nose bleeding, nose congestion, nose pain, photophobia, tearing, throat pain, throat swelling, voice changes, others Respiratory: reports: cough, shortness of breath, SOB with excertion; denies: hemoptysis, orthopnea, SOB at rest, stridor, wheezing, others Cardiovascular: denies: chest pain, dizzy spells, diaphoresis, Dyspnea on exertion, edema, irregular heart beat, left arm pain, lightheadedness, palpitations, PND, syncope, others Gastrointestinal: denies: abdomen distended, abdominal pain, blood streaked bowels, constipated, diarrhea, dysphagia, difficulty swallowing, hematemesis, melena, nausea, poor appetite, poor fluid intake, rectal bleeding, rectal pain, vomiting, others Genitourinary: denies: burning, dysuria, flank pain, frequency, hematuria, incontinence, penile discharge, penile sore, pain, testicle pain, testicle swelling, urgency, others Neurological: denies: dizziness, fainting, headache, left sided numbness, left sided weakness, numbness, paresthesia, pre-existing deficit, right sided numbness, right sided weakness, seizure, speech problems, tingling, tremors, weakness, others Musculoskeletal: denies: back pain, gout, joint pain, joint swelling, muscle pain, muscle stiffness, neck pain, others Integumetry: denies: bruises, change in color, change in hair/nails, dryness, laceration, lesions, lumps, rash, wounds, others Allergic/Immunocompromised: denies: Difficulty Healing, Frequent Infections, Hives, Itching, others Hematologic/Lymphatic: denies: anemia, blood clots, easy bleeding, easy bruising, swollen glands, others Endocrine: denies: excessive hunger, excessive sweating, excessive thirst, excessive urination, flushing, intolerance to cold, intolerance to heat, unexplained weight gain, unexplained weight loss, others Psychiatric: denies: anxiety, bipolar disorder, depression, hopeless, panic disorder, schizophrenia, sleepless, suicidal, others All Other Systems: Reviewed and Negative Physical Exam General Appearance: Moderate Distress, Normal HEENT: Normal ENT Inspection, PERRL/EOMI Neck: Full Range of Motion, Non-Tender, Normal, Normal Inspection Respiratory: Accessory Muscle Use, Chest Non-Tender, Respiratory Distress, Other (Coarse breath sounds) Cardiovascular: No Edema, No JVD, No Murmur, No Gallop, Normal Peripheral Pulses, Tachycardia Breast Exam: Deferred Gastrointestinal: No Organomegaly, Non Tender, No Pulsatile Mass, Normal Bowel Sounds, Soft Genitalia: Deferred Pelvic: Deferred Rectal: Deferred Extremities: No calf tenderness, Normal capillary refill, Normal inspection, Normal range of motion, Non-tender, No pedal edema Musculoskeletal : Apperance: Normal Neurologic: Alert, guitar player II-XII nml as Tested, No Motor Deficits, Normal Affect, Normal Mood, No Sensory Deficits Cerebellar Function: Normal Reflexes: Normal Skin: Dry, Normal Color, Warm Peripheral Pulses: 3+ Radial (R), 3+ Radial (L) Lymphatic: No Adenopathy Was a procedure done? Was a procedure done?: No Differential Dx Differential Diagnosis: Anxiety, Asthma, Bronchitis, CHF, COPD X-Ray, Labs, Meds, VS Vital Signs Date Time Temp Pulse Resp B/P (MAP) Pulse Ox O2 Delivery O2 Flow Rate FiO2 12/11/24 12:41 98.0 119 17 112/65 (81) 97 98.0 12/11/24 12:41 119 17 97 Room Air 12/11/24 11:31 108 12/11/24 11:27 87.4 126 24 112/63 (79) 96 12/11/24 11:24 24 96 Room Air* 0 21 Lab Test 12/11/24 11:33 Range/Units White Blood Count 6.4 4.4-10.8 10^3/uL Red Blood Count 2.54 L 4.5-5.90 10^6/uL Hemoglobin 8.1 L 13.5-17.5 g/dL Hematocrit 24.5 L 41.0-53.0 % Mean Corpuscular Volume 96.3 80.0-100.0 fL Mean Corpuscular Hemoglobin 32.0 28.0-32.0 pg Mean Corpuscular Hemoglobin Concent 33.2 32.0-36.0 g/dL Red Cell Distribution Width 19.7 H 11.8-14.3 % Platelet Count 110 L 140-450 10^3/uL Mean Platelet Volume 6.7 L 6.9-10.8 fL Neutrophils (%) (Auto) 37.0-80.0 % Lymphocytes (%) (Auto) 10.0-50.0 % Monocytes (%) (Auto) 0.0-12.0 % Basophils (%) (Auto) 0.0-2.0 % Neutrophils # (Auto) 1.6-8.6 10 ^3/uL Lymphocytes # (Auto) 0.4-5.4 10 ^3/uL Monocytes # (Auto) 0-1.3 10 ^3/uL Differential Total Cells Counted Pending Neutrophils % (Manual) Pending Band Neutrophils % (Manual) Pending Lymphocytes % (Manual) Pending Monocytes % (Manual) Pending Eosinophils % (Manual) Pending Basophils % (Manual) Pending Metamyelocytes % (manual) Pending Myelocytes % (Manual) Pending Promyelocytes % (Manual) Pending Blast Cells % (Manual) Pending Reactive Lymphocytes Pending Platelet Estimate Pending Sodium Level 142 136-145 mmol/L Potassium Level 3.2 L 3.5-5.1 mmol/L Chloride Level 109 H 98-107 mmol/L Carbon Dioxide Level 21 20-31 mmol/L Anion Gap 12 5-15 Blood Urea Nitrogen 23 9-23 mg/dL Creatinine 1.23 0.700-1.30 mg/dL Glomerular Filtration Rate Calc 61 >90 mL/min BUN/Creatinine Ratio 18.7 10.0-20.0 Serum Glucose 121 H 74-106 mg/dL Calcium Level 9.1 8.7-10.4 mg/dL Troponin I High Sensitivity 4 </=54 ng/L Current Medications Medications (Trade) Dose Ordered Sig/Jazzy Route Start Time Stop Time Status Last Admin Methylprednisolone Sodium Succinate (Solu Medrol) 125 mg ONCE ONCE IV 12/11/24 11:30 12/11/24 11:31 DC 12/11/24 12:40 Patient alert. Shortness a breath. Tachycardia. Placed on oxygen. Continues to have shortness a breath. History of lung cancer. Finished his chemo radiation therapy. Possible pulmonary fibrosis. Possibly need echocardiogram. No leg swelling. CT of the chest. Explained to the patient. Continue monitoring. Was given steroid. Was given breathing treatment. Chest XR: FINDINGS: Lines and Tubes: None Lungs: Linear interstitial opacities at the lung bases. Pleura: No effusion. No pneumothorax. Cardiomediastinal contours: Unremarkable Bones: No acute osseous abnormality. IMPRESSION: Findings suggestive of pulmonary fibrosis at the lung bases. Images Reviewed?: Images reviewed and evaluated by me Time of 1ST Reevaluation: 12:22 Reevaluation 1ST: Unchanged Patient Education/Counseling: Diagnosis, Treatment Family Education/Counseling: Diagnosis, Treatment Additional Information Previous visit documents reviewed: 03/28/24 for hip arthritis The following tests were ordered, and results were reviewed by me: Chest XR Additional Information was gathered from interviewing the following independent historians: I reviewed and agreed with the following test results read by other providers: Chest XR I discussed treatment and results with medical personnel and . Departure 1 Departure Time of Disposition: 12:02 Impression: Primary Impression: Acute respiratory distress Additional Impression: Pneumonitis Disposition: ADMITTED INPATIENT Admit to: Med Surg Condition: Guarded Critical Care Note Critical Care Time?: No Stability Stability form required: No Heart Score Heart Score: Heart Score Response (Comments) Value History N/A 0 EKG N/A 0 Age N/A 0 Risk Factors N/A 0 Troponin N/A 0 Total 0 I personally scribed for AIDA ZAZUETA MD ([email or web address]) on 12/11/24 at 11:26. Electronically submitted by Wagner Queen ([email or web address]). I personally scribed for AIDA ZAZUETA MD ([email or web address]) on 12/11/24 at 12:32. Electronically submitted by Wagner Queen ([email or web address]). AIDA ZAZUETA MD Dec 11, 2024 11:26
--- NOTE | 2024-12-11 11:36 | ECG ---
[facility] Test Date: 2024-12-11 Test Time: 11:31:04 Pat Name: CRISTELA WHEELER Department: ED Room: 0292 Gender: M Pressing Machine Operator: : [id number] Requested By: AIDA ZAZUETA Order Number: [id number] Reading MD: Mark Jansen Measurements Intervals Benson Rate: 108 P: 68 NJ: 130 QRS: 78 QRSD: 100 T: 67 QT: 351 QTc: 471 Interpretive Statements Sinus tachycardia Multiform ventricular premature complexes Minimal ST depression, inferior leads Electronically Signed On 12-15-2024 17:43:54 PST by Mark Jansen Please click the below link to view image of tracing.
--- NOTE | 2024-12-11 12:06 | DVH ---
EXAM: XY CHEST PORTABLE Indication: sob Technique: Single frontal view of the chest was obtained Comparison: XY CHEST PORTABLE on DOS: 07/23/24, XY CHEST PORTABLE on DOS: 07/23/24, CHEST XRAY 1 VIEW on DOS: 04/03/20 FINDINGS: Lines and Tubes: None Lungs: Linear interstitial opacities at the lung bases. Pleura: No effusion. No pneumothorax. Cardiomediastinal contours: Unremarkable Bones: No acute osseous abnormality. IMPRESSION: Findings suggestive of pulmonary fibrosis at the lung bases.
[2024-12-11 12:35] LABS: Hemoglobin 8.1 g/dL (13.5-17.5)
[2024-12-11 12:37] LABS: Anion Gap 12 (5-15); Carbon Dioxide 21 mmol/L (20-31); Hematocrit 24.5 % (41.0-53.0); Mean Corpuscular Hgb Conc. 33.2 g/dL (32.0-36.0); Mean Corpuscular Volume 96.3 fL (80.0-100.0); Platelet Count (auto) 110 10^3/uL (140-450); Red Blood Cells 2.54 10^6/uL (4.5-5.90); Red Cell Distribution Width 19.7 % (11.8-14.3); Sodium 142 mmol/L (136-145); White Blood Cell 6.4 10^3/uL (4.4-10.8)
[2024-12-11 12:38] LABS: Calcium 9.1 mg/dL (8.7-10.4)
[2024-12-11 12:40] LABS: Basophils % (manual) 0 (0.0-2.0); Blast Cells 0; Eosinophils % (manual) 0 (0-7); Metamyelocytes % 0; Promyelocytes % 0; Reactive Lymphocytes 0
[2024-12-11] MEDS: methylPREDNISolone SOD SUCC 125 MG/2 ML VL IV ONE (12:40)
[2024-12-11 12:41] LABS: Potassium 3.2 mmol/L (3.5-5.1)
[2024-12-11 12:42] LABS: Chloride 109 mmol/L (98-107)
[2024-12-11 12:43] LABS: BUN/Creatinine Ratio 18.7 (10.0-20.0)
[2024-12-11 12:44] LABS: Blood Urea Nitrogen 23 mg/dL (9-23); Glucose 121 mg/dL (74-106)
[2024-12-11 14:54] LABS: Band Neutrophils % (manual) 10; Lymphocytes % (manual) 1 (10.0-50.0); Monocytes % (manual) 5 (0-12); Myelocytes % 2
[2024-12-11 14:55] LABS: Platelet Estimate Decreased
[2024-12-11] MEDS ORDERED: IPRATROPIUM BROM 0.5 MG/2.5ML INH SOL NEB SCH (15:45)
--- NOTE | 2024-12-11 16:24 | DVHHPRES ---
History of Present Illness Resident Creating Document: CATHERINE PRINCE RESIDENT History of Present Illness Patient is a 74-year-old male with past medical history of stage III lung cancer finished chemotherapy and radiotherapy 1 week ago, COPD, CAD s/p PTCA x1 stent in 2014, CKD, dyslipidemia, hypertension, who came in due to shortness of breath. According to the patient, for the past 1 week he has been having increasing shortness of breath and a cough productive of white sputum. Patient notes shortness of breaths at rest as well as on exertion. At baseline patient uses a walker as well as ambulates independently. Patient completed left heart catheterization in 2019. On review of systems patient is complaining of fatigue, chills, runny nose, sore throat, shortness of breath and dyspnea. Chest x-ray showed pulmonary fibrosis in the lung bases. Patient was noted to have tachycardia and tachypnea, patient is started on IV ceftriaxone and azithro mycin along with IV fluids and breathing treatment. Cardiovascular: CAD, HTN, CA, hyperipidemia Past Medical History stage III lung cancer finished chemotherapy and radiotherapy 1 week ago, COPD, CAD s/p PTCA x1 stent in 2014, CKD, dyslipidemia, hypertension Past Surgical History Kidney donation 2007, PTCA, back surgery, carpal tunnel repair, cataract surgery Past Social History Smoking: Quit in 2014, prior to that smoked 1 pack per day for 52 years Alcohol: Occasionally Drugs: Uses marijuana often, denies using any other drugs. Review of Systems Constitutional: Yes: Chills, Malaise; No: Fever, Sweats, Weakness, Other Eyes: No: Pain, Vision change, Conjunctivae inflammation, Eyelid inflammation, Other, Redness ENT: No: Ear pain, Ear discharge, Nose pain, Nose discharge, Nose congestion, Mouth pain, Mouth swelling, Throat pain, Throat swelling, Other Respiratory: Cough, Shortness of breath, SOB with excertion, Sputum; No: Dry, Wheezing, Hemoptysis, Pleuritic Pain, Wheezing, Other Cardiovascular: No: Chest Pain, Palpitations, Orthopnea, Paroxysmal Noc. Dyspnea, Edema, Lt Headedness, Other Gastrointestinal: No: Nausea, Vomiting, Abdominal Pain, Diarrhea, Constipation, Melena, Hematochezia, Other Genitourinary: No Dysuria, No Frequency, No Incontinence, No Hematuria, No Retention, No Other Musculoskeletal: No: other, neck pain, shoulder pain, arm pain, back pain, hand pain, leg pain, foot pain Skin: No: Rash, Lesions, Jaundice, Bruising, Other Neurological: No: Weakness, Numbness, Incoordination, Change in speech, Confusion, Seizures, Other Allergies: Coded Allergies: NO KNOWN ALLERGIES (Unverified , 06/01/24) Exam Vital Signs Vital Signs Date Time Temp Pulse Resp B/P (MAP) Pulse Ox O2 Delivery O2 Flow Rate FiO2 12/11/24 12:41 98.0 119 17 112/65 (81) 97 98.0 12/11/24 12:41 Room Air 12/11/24 11:24 0 21 General Appearance: Alert, Oriented X3, Cooperative, mild distress HEENT: Atraumatic, PERRLA, EOMI, Mucous membr. moist/pink Respiratory: Other (Inspiratory crackles at bilateral lung bases) Cardiovascular: Normal S1, Normal S2, Other (Tachycardic) Abdominal: Normal bowel sounds, Soft, No tenderness Extremities: No clubbing, No cyanosis, No edema Skin: No significant lesion Neuro: Normal gait, Normal speech, Strength at 5/5 X4 ext, Normal tone Psych/Mental Status: Mental status NL, Mood NL Labs/Xrays Labs Test 12/11/24 11:33 Range/Units White Blood Count 6.4 4.4-10.8 10^3/uL Red Blood Count 2.54 L 4.5-5.90 10^6/uL Hemoglobin 8.1 L 13.5-17.5 g/dL Hematocrit 24.5 L 41.0-53.0 % Mean Corpuscular Volume 96.3 80.0-100.0 fL Mean Corpuscular Hemoglobin 32.0 28.0-32.0 pg Mean Corpuscular Hemoglobin Concent 33.2 32.0-36.0 g/dL Red Cell Distribution Width 19.7 H 11.8-14.3 % Platelet Count 110 L 140-450 10^3/uL Mean Platelet Volume 6.7 L 6.9-10.8 fL Neutrophils (%) (Auto) 37.0-80.0 % Lymphocytes (%) (Auto) 10.0-50.0 % Monocytes (%) (Auto) 0.0-12.0 % Basophils (%) (Auto) 0.0-2.0 % Neutrophils # (Auto) 1.6-8.6 10 ^3/uL Lymphocytes # (Auto) 0.4-5.4 10 ^3/uL Monocytes # (Auto) 0-1.3 10 ^3/uL Differential Total Cells Counted 100.0 100 Neutrophils % (Manual) 82 H 37.0-80.0 Band Neutrophils % (Manual) 10 Lymphocytes % (Manual) 1 L 10.0-50.0 Monocytes % (Manual) 5 0-12 Eosinophils % (Manual) 0 0-7 Basophils % (Manual) 0 0.0-2.0 Metamyelocytes % (manual) 0 Myelocytes % (Manual) 2 Promyelocytes % (Manual) 0 Blast Cells % (Manual) 0 Reactive Lymphocytes 0 Platelet Estimate Decreased Sodium Level 142 136-145 mmol/L Potassium Level 3.2 L 3.5-5.1 mmol/L Chloride Level 109 H 98-107 mmol/L Carbon Dioxide Level 21 20-31 mmol/L Anion Gap 12 5-15 Blood Urea Nitrogen 23 9-23 mg/dL Creatinine 1.23 0.700-1.30 mg/dL Glomerular Filtration Rate Calc 61 >90 mL/min BUN/Creatinine Ratio 18.7 10.0-20.0 Serum Glucose 121 H 74-106 mg/dL Calcium Level 9.1 8.7-10.4 mg/dL Troponin I High Sensitivity 4 </=54 ng/L Assessment/Plan Assessment/Plan Community-acquired pneumonia: Gram-positive versus Gram-negative Sepsis due to above Pulmonary fibrosis probable COPD exacerbation Ruled out pulmonary embolism, wells score for PE 2.5 - CXR: Pulmonary fibrosis in bilateral lung bases - IV ceftriaxone, IV azithromycin - IV NS 1 L bolus - ipratropium levalbuterol med nebs - ordered CT PA: No pulmonary emboli, aortic aneurysm or dissection. Moderate lymphadenopathy anterior to the trachea and in subcarinal region. Chronic inters titial lung disease and honeycombing in bilateral lower lobe basis. Mild paraseptal emphysematous changes are noted bilaterally. Immunocompromised secondary to chemotherapy for stage III lung cancer - monitor CAD s/p PTCA x1 stent in 2014 Dyslipidemia Hypertension - resumed home medication Plavix - resumed home medication atorvastatin Hypokalemia - repleted Chronic kidney disease probably stage 2-3 - monitor Depression, likely MDD - resumed home medications citalopram Hypothyroidism - resumed home medication levothyroxine GERD - Resumed home medication p.o. Protonix 40 mg Goals of care: Full code, discussed for >16 minutes on 12/11/2024 Plan discussed with patient Plan discussed with Dr. Fernandez Plan discussed with: Patient, Spouse, Other (RN) My Orders Orders - CATHERINE PRINCE RESIDENT Procedure Category Date Status Time Admit ADMIT 12/11/24 Verified 15:42 Code Status CODE 12/11/24 Verified 15:42 Vital Signs [facility] 12/11/24 Verified 15:42 Review Orders With [facility] 12/11/24 Verified Adm.Md 15:42 Notify Md Of Changes [facility] 12/11/24 Verified From Base 15:42 Advance Directive [facility] 12/11/24 Verified 15:42 Urinalysis LAB 12/11/24 Verified 15:42 Blood Culture [facility] 12/11/24 Verified 15:42 Patient Condition ORDERS 12/11/24 Verified 15:42 Allergies PERLA 12/11/24 Verified 15:42 Notify Md Of Changes [facility] 12/11/24 Verified From Base 15:42 Electrocardigram EKG 12/11/24 Verified 15:[address] 12/11/24 Verified Contrast 15:42 Potassium Effervesent PHA 12/11/24 Verified Tab (Klor-Con/Ef) 15:45 Covid19 Antigen Leighann LAB 12/11/24 Verified Rapid Influenza A&B LAB 12/11/24 Verified 15:42 Lactic Acid W/ Reflex LAB 12/11/24 Verified Order 15:42 Ceftriaxone Ivpb PHA 12/12/24 Verified Rocephin 09:00 Ceftriaxone Ivpb PHA 12/11/24 Verified Rocephin 15:45 Azithromycin 500mg/ PHA 12/12/24 Verified 250ml (Zithromax 50 10:00 Azithromycin 500mg/ PHA 12/11/24 Verified 250ml (Zithromax 50 15:45 Respiratory Culture [facility] 12/11/24 Verified W/ Gs 15:42 Ipratropium Medneb PHA 12/11/24 Verified (Atrovent Medneb) 15:45 Ipratropium Medneb PHA 12/11/24 Verified (Atrovent Medneb) 15:45 Levalbuterol Hcl PHA 12/11/24 Verified (Xopenex Medneb) 18:00 Mrsa Screen [facility] 12/11/24 Verified 15:42 PTPTT LAB 12/11/24 Verified 15:42 NS PHA 12/11/24 Verified 15:45 Date of Service: Dec 11, 2024 Billing Provider: LUCÍA FERNANDEZ MD Common Visit Codes: 41020-SCSCRCA INP/OBS CARE (HIGH) PRINCECATHERINE RESIDENT Dec 11, 2024 16:24 LUCÍA FERNANDEZ MD Dec 18, 2024 14:37
[2024-12-11] MEDS: SODIUM CHLORIDE 0.9% 1,000 ML IV ONE (16:57)
[2024-12-11] MEDS: cefTRIAXone 1GM/50ML D5W 50 ML IV ONE (16:57)
[2024-12-11] MEDS: AZITHROMYCIN 500MG/ 250ML 250 ML IV ONE (16:57)
[2024-12-11] MEDS: POTASSIUM EFFERVESENT TAB 25 MEQ PO ONE (16:59)
[2024-12-11] MEDS: IOHEXOL 350 MG/ML 100ML IJ ONE (17:00)
--- NOTE | 2024-12-11 17:17 | DVH ---
PROCEDURE: CT CT ANGIO CHEST CONTRAST 12/11/2024 04:06 PM INDICATION: r/o PE COMPARISON: None TECHNIQUE: Coverage: Thorax IV contrast: Administered Phases: Arterial Multiplanar 3-D Maximum Intensity Projection images (MIP) reconstructions were created by the techndanial kim in the coronal and sagittal planes as part of the CT angiography protocol. Adverse events: None Medication laboratory values were reviewed to verify the patient meets criteria for contrast administ ration. All CT scans at this medical facility are performed using dose modulation techniques as appropriate t o a performed exam including the following: Automated exposure control was utilized; adjustment of th e MA and/or KV according to patient size; and use of iterative reconstruction technique. Radiation dose: CTDIvol 8.87 mGy, DLP 439.8 mGy*cm. FINDINGS: Cardiovascular: No evidence of acute or chronic pulmonary emboli identified. Aorta is normal in calib er with mild scattered calcified plaques noted. The heart is normal in size. Coronary artery calcific ation noted. Lungs: No focal consolidation. Mild paraseptal emphysematous changes. Interlobular septal thickening and honeycombing in the bibasilar regions noted. No pleural effusion. No pneumothorax. The airways ar e patent. Thyroid: Unremarkable. Esophagus: There is circumferential mural thickening of the upper esophagus. Lymphatics: Soft tissue fullness is seen anterior to distal trachea likely lymphadenopathy measuring approximately 2.8 x 2.4 cm. Mildly prominent subcarinal lymph node measuring 1.2 x 0.8 cm. Bones/soft tissues: No acute abnormality. Mild anterior compression deformities of several mid to low er thoracic vertebrae likely chronic without retropulsion. Upper abdomen: No acute abnormality. Numerous punctate calcifications are seen throughout the pancrea s reflecting sequela of chronic pancreatitis. Several small hepatic cysts are seen. Left kidney is no t identified in the left renal fossa likely surgically absent. Other: None. IMPRESSION: 1. No pulmonary emboli, aortic aneurysm or dissection. 2. Moderate lymphadenopathy anterior to the trachea and in subcarinal region. 3. Chronic interstitial lung disease and honeycombing in bilateral lower lobe basis. Mild paraseptal emphysematous changes are noted bilaterally.
[2024-12-11 17:24] LABS: INR 1.08 (0.9-1.15); Partial Thromboplastin Time 25.5 SEC (24.5-34.5); Prothrombin Time 11.4 sec (9.3-11.8)
[2024-12-11] MEDS: IPRATROPIUM BROM 0.5 MG/2.5ML INH SOL NEB SCH (18:00)
[2024-12-11] MEDS: LEVALBUTEROL HCL 1.25 MG/3 ML NEB NEB SCH (18:53)
[2024-12-11] MEDS: SODIUM CHLORIDE 0.9% 500 ML IV ONE (21:41)
[2024-12-11] MEDS: ATORVASTATIN 20 MG TAB PO SCH (22:59)
[2024-12-11 23:20] LABS: COVID19 ANTIGEN SOFIA FIA NEGATIVE (NEGATIVE); Rapid Influenza A Negative (Negative); Rapid Influenza B Negative (Negative)
[2024-12-11] MEDS ORDERED: PRE5T PO (23:46)
[2024-12-11] MEDS ORDERED: TRAZ-227 PO (23:46)
[2024-12-11] MEDS ORDERED: FAMO20TA10 PO (23:46)
[2024-12-12] VITALS (15 sets, daily range): BP systolic 100–137; BP diastolic 56–90; PULSE 76–98; RESP 16–19; TEMP 36.8; O2SAT 93–100
[2024-12-12] MEDS: PANTOPRAZOLE 40 MG TAB PO SCH (06:37)
[2024-12-12] MEDS: LEVOTHYROXINE SODIUM 50 MCG TAB PO SCH (06:37)
[2024-12-12 07:35] LABS: Potassium 4.3 mmol/L (3.5-5.1); Sodium 139 mmol/L (136-145)
[2024-12-12 07:36] LABS: Anion Gap 10 (5-15); Carbon Dioxide 21 mmol/L (20-31)
[2024-12-12 07:37] LABS: Calcium 8.5 mg/dL (8.7-10.4); Chloride 108 mmol/L (98-107)
[2024-12-12 07:41] LABS: BUN/Creatinine Ratio 20.5 (10.0-20.0)
[2024-12-12 07:43] LABS: Blood Urea Nitrogen 23 mg/dL (9-23); Glucose 129 mg/dL (74-106)
[2024-12-12 08:29] LABS: Basophils # (auto) 0 10 ^3/uL (0-0.2); Eosinophils # (auto) 0 10 ^3/uL (0-0.8); Lymphocytes # (auto) 0.1 10 ^3/uL (0.4-5.4); Monocytes # (auto) 0.2 10 ^3/uL (0-1.3); Neutrophils # (auto) 2.8 10 ^3/uL (1.6-8.6); Platelet Count (auto) 72 10^3/uL (140-450); Red Blood Cells 1.81 10^6/uL (4.5-5.90); White Blood Cell 3.1 10^3/uL (4.4-10.8)
[2024-12-12 08:37] LABS: Basophils % (auto) 0.2 % (0.0-2.0); Hematocrit 17.4 % (41.0-53.0); Mean Corpuscular Hemoglobin 33.6 pg (28.0-32.0); Mean Corpuscular Volume 96.1 fL (80.0-100.0); Monocytes % (auto) 6.2 % (0.0-12.0); Neutrophils % (auto) 90.6 % (37.0-80.0); Nucleated Red Blood Cells % 0.3 %; Red Cell Distribution Width 21.2 % (11.8-14.3)
[2024-12-12 08:38] LABS: Hemoglobin 6.1 g/dL (13.5-17.5)
[2024-12-12] MEDS: cefTRIAXone 1GM/50ML D5W 50 ML IV SCH (08:45)
[2024-12-12] MEDS: CITALOPRAM HYDROBR 20 MG TAB PO SCH (08:46)
[2024-12-12] MEDS: CLOPIDOGREL BISULFATE 75 MG TAB PO SCH (10:00)
[2024-12-12] MEDS: AZITHROMYCIN 500MG/ 250ML 250 ML IV SCH (10:16)
[2024-12-12 13:49] LABS: Urine Bacteria None Seen /hpf (None Seen)
[2024-12-12 13:55] LABS: Urine Blood Negative /uL (Negative); Urine Clarity Clear (Clear); Urine Color Colorless (Yellow); Urine Protein, UAD Negative (Negative); Urine Specific Gravity 1.008 (1.001-1.035); Urine Squamous Epithelial Cell None Seen /hpf (<5); Urine Urobilinogen Normal (Negative)
[2024-12-12 14:02] LABS: Urine WBC < 1 /HPF (0-3)
--- NOTE | 2024-12-12 15:18 | DVHDSRES ---
Discharge Summary Date of Admission Resident Creating Document: CATHERINE PRINCE RESIDENT Dec 11, 2024 at 15:42 Date of Discharge: Dec 12, 2024 Admitting Diagnosis Shortness of breath Labs/Diagnostic Data: Laboratory Results Test 12/12/24 13:37 12/12/24 06:37 12/11/24 21:40 12/11/24 16:50 Urine Color Colorless (Yellow) Urine Clarity Clear (Clear) Urine pH 6.0 (5.0-9.0) Urine Specific [place] 1.008 (1.001-1.035) Urine Protein Negative (Negative) Urine Ketones Negative (Negative) Urine Blood Negative /uL (Negative) Urine Nitrite Negative (Negative) Urine Bilirubin Negative (Negative) Urine Urobilinogen Normal mg/dL (Negative) Urine Leukocyte Esterase Negative /uL (Negative) Urine RBC <1 /hpf (0 - 3) Urine Microscopic WBC < 1 /HPF (0-3) Urine Squamous Epithelial Cells None seen /hpf (<5) Urine Bacteria None seen /hpf (None Seen) Urine Glucose Normal mg/dL (Normal) White Blood Count 3.1 10^3/uL (4.4-10.8) Red Blood Count 1.81 10^6/uL (4.5-5.90) Hemoglobin 6.1 g/dL (13.5-17.5) Hematocrit 17.4 % (41.0-53.0) Mean Corpuscular Volume 96.1 fL (80.0-100.0) Mean Corpuscular Hemoglobin 33.6 pg (28.0-32.0) Mean Corpuscular Hemoglobin Concent 35.0 g/dL (32.0-36.0) Red Cell Distribution Width 21.2 % (11.8-14.3) Platelet Count 72 10^3/uL (140-450) Mean Platelet Volume 6.4 fL (6.9-10.8) Neutrophils (%) (Auto) 90.6 % (37.0-80.0) Lymphocytes (%) (Auto) 3.0 % (10.0-50.0) Monocytes (%) (Auto) 6.2 % (0.0-12.0) Eosinophils (%) (Auto) 0.0 % (0.0-7.0) Basophils (%) (Auto) 0.2 % (0.0-2.0) Neutrophils # (Auto) 2.8 10 ^3/uL (1.6-8.6) Lymphocytes # (Auto) 0.1 10 ^3/uL (0.4-5.4) Monocytes # (Auto) 0.2 10 ^3/uL (0-1.3) Eosinophils # (Auto) 0 10 ^3/uL (0-0.8) Basophils # (Auto) 0 10 ^3/uL (0-0.2) Nucleated Red Blood Cells 0.3 % Reticulocyte Count (auto) 5.59 % (0.5-1.5) Sodium Level 139 mmol/L (136-145) Potassium Level 4.3 mmol/L (3.5-5.1) Chloride Level 108 mmol/L (98-107) Carbon Dioxide Level 21 mmol/L (20-31) Anion Gap 10 (5-15) Blood Urea Nitrogen 23 mg/dL (9-23) Creatinine 1.12 mg/dL (0.700-1.30) Glomerular Filtration Rate Calc 69 mL/min (>90) BUN/Creatinine Ratio 20.5 (10.0-20.0) Serum Glucose 129 mg/dL (74-106) Calcium Level 8.5 mg/dL (8.7-10.4) Lactate Dehydrogenase 174 U/L (120-246) Influenza Type A Antigen Negative (Negative) Influenza Type B Antigen Negative (Negative) SARS-CoV-2 Antigen (Rapid) Negative (NEGATIVE) Prothrombin Time 11.4 sec (9.3-11.8) Prothrombin Time INR 1.08 (0.9-1.15) Activated Partial Thromboplast Time 25.5 SEC (24.5-34.5) Lactic Acid Level 1.3 mmol/L (0.4-2.0) Test 12/11/24 11:33 Differential Total Cells Counted 100.0 (100) Neutrophils % (Manual) 82 (37.0-80.0) Band Neutrophils % (Manual) 10 Lymphocytes % (Manual) 1 (10.0-50.0) Monocytes % (Manual) 5 (0-12) Eosinophils % (Manual) 0 (0-7) Basophils % (Manual) 0 (0.0-2.0) Metamyelocytes % (manual) 0 Myelocytes % (Manual) 2 Promyelocytes % (Manual) 0 Blast Cells % (Manual) 0 Reactive Lymphocytes 0 Platelet Estimate Decreased Troponin I High Sensitivity 4 ng/L (</=54) Thyroid Stimulating Hormone (TSH) 3.45 uIU/mL (0.55-4.78) Other Laboratory Tests 12/12/24 06:37 Brief Hx & Hospital Course: Patient is a 74-year-old male with past medical history of stage III lung cancer finished chemotherapy and radiotherapy 1 week ago, COPD, CAD s/p PTCA x1 stent in 2014, CKD, dyslipidemia, hypertension, who came in due to shortness of breath. According to the patient, for the past 1 week he has been having increasing shortness of breath and a cough productive of white sputum. Patient notes shortness of breaths at rest as well as on exertion. At baseline patient uses a walker as well as ambulates independently. Patient completed left heart catheterization in 2019. On review of systems patient is complaining of fatigue, chills, runny nose, sore throat, shortness of breath and dyspnea. Chest x-ray showed pulmonary fibrosis in the lung bases. Patient was noted to have tachycardia and tachypnea, patient is started on IV ceftriaxone and azithromycin along with IV fluids and breathing treatment. Hospital course: Patient was given IV NS 1.5 L NC tPA was ordered for the patient which showed no pulmonary emboli, aortic aneurysm or dissection. Moderate lymphadenopathy anterior to the trachea in the subcarinal region. Chronic interstitial lung disease and honeycombing bilateral lower lobe basis. Mild paraseptal emphysematous changes are noted bilaterally. Home medication atorvastatin Plavix, levothyroxine, Protonix and citalopram were continued. On the 2nd day of hospitalization patient was noted to have a hemoglobin level of 6.1 and he was subsequently transfused with 1 PRBC. At the time of discharge, patient appeared well and had stable vital signs, patient was on room air and noted improvement in his shortness of breath. Patient was discharged home with levofloxacin 750 mg once daily for 5 days to complete the course of therapy. His hospital course was uncomplicated. Patient was also urged to follow up in the discharge clinic. General Appearance: Alert, Oriented X3, Cooperative, mild distress HEENT: Atraumatic, PERRLA, EOMI, Mucous membr. moist/pink Respiratory: Other (Inspiratory crackles at bilateral lung bases) Cardiovascular: Normal S1, Normal S2, Abdominal: Normal bowel sounds, Soft, No tenderness Extremities: No clubbing, No cyanosis, No edema Skin: No significant lesion Neuro: Normal gait, Normal speech, Strength at 5/5 X4 ext, Normal tone Psych/Mental Status: Mental status NL, Mood NL Condition at Discharge: Fair Final Diagnosis/Problems List Community-acquired pneumonia: Gram-positive versus Gram-negative Sepsis due to above Pulmonary fibrosis probable COPD exacerbation Ruled out pulmonary embolism, wells score for PE 2.5 Immunocompromised secondary to chemotherapy for stage III lung cancer CAD s/p PTCA x1 stent in 2014 Dyslipidemia Hypertension Hypokalemia 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 Patient was counseled about treatment plan, medications, possible side effects, patientverbalized understanding. All questions were answered to the best of my ability. This discharge took greater then 30 minutes in planning, reviewing documentation, counseling the patient, and discussing with other team members." ASSESSMENT ASSESSMENT Assessment Community-acquired pneumonia: Gram-positive versus Gram-negative Sepsis due to above Pulmonary fibrosis probable COPD exacerbation Ruled out pulmonary embolism, wells score for PE 2.5 Immunocompromised secondary to chemotherapy for stage III lung cancer CAD s/p PTCA x1 stent in 2014 Dyslipidemia Hypertension Hypokalemia Chronic kidney disease probably stage 2-3 Depression, likely MDD Hypothyroidism GERD Date of Service: Dec 12, 2024 Billing Provider: LUCÍA FERNANDEZ MD Common Visit Codes: 56678-GUL/OBS DISCH DAY >30min CATHERINE PRINCE Dec 12, 2024 15:17 LUCÍA FERNANDEZ MD Dec 18, 2024 14:38
[2024-12-12] MEDS ORDERED: LEVO750T40 PO (17:31)
== END 2024-12-12 18:55 | disposition home or self-care (01) | DRG 871 ==
LOC: ER 11:12 → OVERFLOW 15:42 → WEST WING 12-12 03:40
PROVIDERS: ADMIT Student in an Organized Health Care Education/Training Program; ATTEND Student in an Organized Health Care Education/Training Program
PROC: 30233N1 Transfusion of Nonautologous Red Blood Cells into Peripheral Vein, Percutaneous Approach (ICD-10-PCS; principal; 2024-12-12)
DX: A41.59 Other Gram-negative sepsis (principal); J15.69 Pneumonia due to other Gram-negative bacteria; J15.9 Unspecified bacterial pneumonia; J44.1 Chronic obstructive pulmonary disease with (acute) exacerbation; D84.821 Immunodeficiency due to drugs; J44.0 Chronic obstructive pulmonary disease with (acute) lower respiratory infection; E87.6 Hypokalemia; E78.5 Hyperlipidemia, unspecified; K21.9 Gastro-esophageal reflux disease without esophagitis; J84.10 Pulmonary fibrosis, unspecified; I25.10 Atherosclerotic heart disease of native coronary artery without angina pectoris; J98.4 Other disorders of lung; T45.1X5A Adverse effect of antineoplastic and immunosuppressive drugs, initial encounter; E03.9 Hypothyroidism, unspecified; R59.1 Generalized enlarged lymph nodes; N18.30 Chronic kidney disease, stage 3 unspecified; I12.9 Hypertensive chronic kidney disease with stage 1 through stage 4 chronic kidney disease, or unspecified chronic kidney disease; Z95.5 Presence of coronary angioplasty implant and graft; Z85.118 Personal history of other malignant neoplasm of bronchus and lung; Y92.89 Other specified places as the place of occurrence of the external cause; Z79.899 Other long term (current) drug therapy
CPT/HCPCS: 36415; 71045; 71275; 80048; 81001; 83605; 83615; 84443; 84484; 85007; 85025; 85027; 85045; 85610; 85730; 86850; 86900; 86901; 86920; 87040; 87070; 87077; 87081; 87186; 87205; 87426; 87804; 93005; 94640; 96365; G0378

== ENCOUNTER → 2024-12-18 | Outpatient (CLI) | payer OTHER ==
[~2024-12-18] MED LIST changes: +FAMO20TA10 PO; +LEVO750T40 PO; +PRE5T PO; +TRAZ-227 PO
[2024-12-18 09:07] LABS: Basophils # (auto) 0 10 ^3/uL (0-0.2); Basophils % (auto) 0.6 % (0.0-2.0); Eosinophils # (auto) 0 10 ^3/uL (0-0.8); Eosinophils % (auto) 0.7 % (0.0-7.0); Hematocrit 28.7 % (41.0-53.0); Hemoglobin 9.8 g/dL (13.5-17.5); Lymphocytes # (auto) 0.2 10 ^3/uL (0.4-5.4); Lymphocytes % (auto) 4.1 % (10.0-50.0); Mean Corpuscular Hemoglobin 32.6 pg (28.0-32.0); Mean Corpuscular Hgb Conc. 34.1 g/dL (32.0-36.0); Mean Corpuscular Volume 95.4 fL (80.0-100.0); Monocytes # (auto) 0.4 10 ^3/uL (0-1.3); Monocytes % (auto) 10.2 % (0.0-12.0); Neutrophils # (auto) 3.2 10 ^3/uL (1.6-8.6); Neutrophils % (auto) 84.4 % (37.0-80.0); Nucleated Red Blood Cells % 0.2 %; Platelet Count (auto) 105 10^3/uL (140-450); Red Blood Cells 3.01 10^6/uL (4.5-5.90); White Blood Cell 3.8 10^3/uL (4.4-10.8)
[2024-12-18 09:11] LABS: Red Cell Distribution Width 21.8 % (11.8-14.3)
[2024-12-18 09:47] LABS: Alanine Aminotransferase 17 U/L (7-40); Albumin 4.1 g/dL (3.2-4.8); Anion Gap 8 (5-15); Aspartate Aminotransferase 13 U/L (13-40); BUN/Creatinine Ratio 20.5 (10.0-20.0); Calcium 9.8 mg/dL (8.7-10.4); Carbon Dioxide 24 mmol/L (20-31); Glucose 92 mg/dL (74-106); Potassium 3.8 mmol/L (3.5-5.1); Sodium 141 mmol/L (136-145); Total Protein 6.1 g/dL (5.7-8.2)
[2024-12-18 09:48] LABS: Alkaline Phosphatase 45 U/L (46-116); Bilirubin, Total 0.5 mg/dL (0.2-1.0); Blood Urea Nitrogen 25 mg/dL (9-23); Chloride 109 mmol/L (98-107)
== END | disposition home or self-care (01) ==
LOC: LAB 08:45
PROVIDERS: ATTEND Student in an Organized Health Care Education/Training Program
DX: C34.92 Malignant neoplasm of unspecified part of left bronchus or lung (principal)
CPT/HCPCS: 36415; 80053; 83615; 85025

== ENCOUNTER → 2025-02-07 | Outpatient (CLI) | payer OTHER ==
[2025-02-07 08:25] LABS: Urine Bacteria None Seen /hpf (None Seen)
[2025-02-07 08:31] LABS: Urine Blood Negative /uL (Negative); Urine Clarity Clear (Clear); Urine Color Light-Yellow (Yellow); Urine Hyaline Cast FEW /lpf (0 - 2); Urine Protein, UAD TRACE (Negative); Urine Specific Gravity 1.019 (1.001-1.035); Urine Squamous Epithelial Cell None Seen /hpf (<5); Urine Urobilinogen Normal (Negative); Urine WBC 1 /HPF (0-3)
[2025-02-07 08:36] LABS: Basophils # (auto) 0 10 ^3/uL (0-0.2); Basophils % (auto) 0.7 % (0.0-2.0); Eosinophils # (auto) 0 10 ^3/uL (0-0.8); Eosinophils % (auto) 1.2 % (0.0-7.0); Hematocrit 36.3 % (41.0-53.0); Hemoglobin 12.3 g/dL (13.5-17.5); Lymphocytes # (auto) 0.2 10 ^3/uL (0.4-5.4); Lymphocytes % (auto) 6.1 % (10.0-50.0); Monocytes # (auto) 0.4 10 ^3/uL (0-1.3); Monocytes % (auto) 10.3 % (0.0-12.0); Neutrophils # (auto) 2.9 10 ^3/uL (1.6-8.6); Neutrophils % (auto) 81.7 % (37.0-80.0); Red Blood Cells 3.53 10^6/uL (4.5-5.90); Red Cell Distribution Width 17.4 % (11.8-14.3); White Blood Cell 3.6 10^3/uL (4.4-10.8)
[2025-02-07 08:37] LABS: Platelet Count (auto) 118 10^3/uL (140-450)
[2025-02-07 08:49] LABS: Alanine Aminotransferase 24 U/L (7-40); Albumin 4.7 g/dL (3.2-4.8); Alkaline Phosphatase 54 U/L (46-116); Anion Gap 8 (5-15); Aspartate Aminotransferase 20 U/L (13-40); BUN/Creatinine Ratio 21.4 (10.0-20.0); Bilirubin, Total 0.7 mg/dL (0.2-1.0); Calcium 10.1 mg/dL (8.7-10.4); Carbon Dioxide 26 mmol/L (20-31); Cholesterol 147 mg/dL (< 200); Glucose 89 mg/dL (74-106); LDL Cholesterol 65 mg/dL (< 100); Sodium 141 mmol/L (136-145); Triglycerides 70 mg/dL (< 150)
[2025-02-07 08:51] LABS: Blood Urea Nitrogen 30 mg/dL (9-23); Chloride 107 mmol/L (98-107); HDL Cholesterol 66 mg/dL (40-59); Potassium 3.4 mmol/L (3.5-5.1)
== END | disposition home or self-care (01) ==
LOC: LAB 07:41
PROVIDERS: ATTEND Internal Medicine
DX: C34.92 Malignant neoplasm of unspecified part of left bronchus or lung (principal); I10 Essential (primary) hypertension; D50.9 Iron deficiency anemia, unspecified; Z13.1 Encounter for screening for diabetes mellitus; Z00.01 Encounter for general adult medical examination with abnormal findings
CPT/HCPCS: 36415; 80053; 80061; 81001; 83036; 83615; 84439; 84443; 85025

== ENCOUNTER → 2025-02-19 | Outpatient (CLI) | payer OTHER ==
[2025-02-19 10:54] LABS: Chloride 106 mmol/L (98-107); Potassium 4.2 mmol/L (3.5-5.1); Sodium 140 mmol/L (136-145)
[2025-02-19 10:55] LABS: Anion Gap 8 (5-15); Calcium 8.7 mg/dL (8.7-10.4); Carbon Dioxide 26 mmol/L (20-31)
[2025-02-19 10:59] LABS: Uric Acid 4.6 mg/dL (3.7-9.2)
[2025-02-19 11:00] LABS: BUN/Creatinine Ratio 17.2 (10.0-20.0); Blood Urea Nitrogen 22 mg/dL (9-23); Glucose 95 mg/dL (74-106)
== END | disposition home or self-care (01) ==
LOC: LAB 10:19
PROVIDERS: ATTEND Internal Medicine
DX: I13.0 Hypertensive heart and chronic kidney disease with heart failure and stage 1 through stage 4 chronic kidney disease, or unspecified chronic kidney disease (principal); N18.2 Chronic kidney disease, stage 2 (mild); E87.6 Hypokalemia
CPT/HCPCS: 36415; 80048; 84550

== ENCOUNTER → 2025-03-05 | Outpatient (CLI) | payer OTHER ==
[2025-03-05 07:53] LABS: Basophils # (auto) 0 10 ^3/uL (0-0.2); Eosinophils # (auto) 0.1 10 ^3/uL (0-0.8); Hemoglobin 11.7 g/dL (13.5-17.5); Lymphocytes # (auto) 0.2 10 ^3/uL (0.4-5.4); Monocytes # (auto) 0.3 10 ^3/uL (0-1.3); Neutrophils # (auto) 2.4 10 ^3/uL (1.6-8.6); Red Cell Distribution Width 15.1 % (11.8-14.3)
[2025-03-05 07:58] LABS: Basophils % (auto) 0.9 % (0.0-2.0); Eosinophils % (auto) 1.9 % (0.0-7.0); Hematocrit 34.6 % (41.0-53.0); Mean Corpuscular Hemoglobin 34.5 pg (28.0-32.0); Mean Corpuscular Hgb Conc. 33.8 g/dL (32.0-36.0); Monocytes % (auto) 11.5 % (0.0-12.0); Neutrophils % (auto) 79.7 % (37.0-80.0); Platelet Count (auto) 146 10^3/uL (140-450)
[2025-03-05 08:18] LABS: Alanine Aminotransferase 20 U/L (7-40); Alkaline Phosphatase 51 U/L (46-116); Calcium 8.9 mg/dL (8.7-10.4); Carbon Dioxide 23 mmol/L (20-31)
[2025-03-05 08:19] LABS: Albumin 4.4 g/dL (3.2-4.8); Anion Gap 10 (5-15); Aspartate Aminotransferase 15 U/L (13-40); BUN/Creatinine Ratio 16.9 (10.0-20.0); Bilirubin, Total 0.5 mg/dL (0.2-1.0); Blood Urea Nitrogen 21 mg/dL (9-23); Chloride 109 mmol/L (98-107); Glucose 89 mg/dL (74-106); Potassium 3.6 mmol/L (3.5-5.1); Sodium 142 mmol/L (136-145); Total Protein 6.5 g/dL (5.7-8.2)
[2025-03-05 09:01] LABS: T3 Total 0.7 ng/mL (0.60-1.81)
[2025-03-05 09:02] LABS: Folate (Folic Acid) 12.22 ng/mL (>5.38)
[2025-03-05 09:03] LABS: Ferritin 82.6 ng/mL (22-322)
[2025-03-05 09:13] LABS: % Iron Saturation 24.3 % (20-55)
== END | disposition home or self-care (01) ==
LOC: LAB 07:40
PROVIDERS: ATTEND Student in an Organized Health Care Education/Training Program
DX: C34.92 Malignant neoplasm of unspecified part of left bronchus or lung (principal); D70.9 Neutropenia, unspecified; R79.89 Other specified abnormal findings of blood chemistry
CPT/HCPCS: 36415; 80053; 82607; 82728; 82746; 83540; 83550; 84436; 84443; 84480; 85025

== ENCOUNTER 2025-03-12 08:35 | Outpatient (CLI) | payer OTHER ==
[2025-03-12 08:52] LABS: Urine Bacteria None Seen /hpf (None Seen)
[2025-03-12 08:57] LABS: Basophils # (auto) 0 10 ^3/uL (0-0.2); Eosinophils # (auto) 0.1 10 ^3/uL (0-0.8); Hemoglobin 11.6 g/dL (13.5-17.5); Lymphocytes # (auto) 0.2 10 ^3/uL (0.4-5.4); Mean Corpuscular Hgb Conc. 33.3 g/dL (32.0-36.0); Monocytes # (auto) 0.4 10 ^3/uL (0-1.3); White Blood Cell 4.7 10^3/uL (4.4-10.8)
[2025-03-12 08:59] LABS: Basophils % (auto) 0.8 % (0.0-2.0); Eosinophils % (auto) 1.8 % (0.0-7.0); Hematocrit 34.9 % (41.0-53.0); Lymphocytes % (auto) 4.5 % (10.0-50.0); Mean Corpuscular Hemoglobin 33.8 pg (28.0-32.0); Mean Corpuscular Volume 101.7 fL (80.0-100.0); Neutrophils % (auto) 84.9 % (37.0-80.0); Platelet Count (auto) 153 10^3/uL (140-450); Red Blood Cells 3.43 10^6/uL (4.5-5.90); Red Cell Distribution Width 14.6 % (11.8-14.3)
[2025-03-12 09:01] LABS: Urine Blood Negative /uL (Negative); Urine Clarity Clear (Clear); Urine Color Light-Yellow (Yellow); Urine Protein, UAD Negative (Negative); Urine Specific Gravity 1.008 (1.001-1.035); Urine Squamous Epithelial Cell None Seen /hpf (<5); Urine Urobilinogen Normal (Negative); Urine WBC < 1 /HPF (0-3)
[2025-03-12 09:29] LABS: Protein, Urine 8.2 mg/dL (1-14)
[2025-03-12 09:32] LABS: Creatinine, Urine 59.95 mg/dL (30.0-125.0); Creatinine, Urine 60.25 mg/dL (30.0-125.0); Urine Protein/Creatinine Ratio 0.14
[2025-03-12 09:35] LABS: Alanine Aminotransferase 13 U/L (7-40); Albumin 4.2 g/dL (3.2-4.8); Alkaline Phosphatase 51 U/L (46-116); Anion Gap 6 (5-15); BUN/Creatinine Ratio 16.9 (10.0-20.0); Bilirubin, Total 0.4 mg/dL (0.2-1.0); Blood Urea Nitrogen 22 mg/dL (9-23); Calcium 9.4 mg/dL (8.7-10.4); Carbon Dioxide 26 mmol/L (20-31); Glucose 94 mg/dL (74-106); Sodium 142 mmol/L (136-145); Total Protein 6.2 g/dL (5.7-8.2)
[2025-03-12 09:36] LABS: Micro Albumin < 3.0 mg/L (<30.0); Microalb/Creat Ratio, Urine < 5.00
[2025-03-12 09:37] LABS: Aspartate Aminotransferase 13 U/L (13-40); Chloride 110 mmol/L (98-107)
== END 2025-03-12 17:00 | disposition home or self-care (01) ==
LOC: LAB 08:35
PROVIDERS: ATTEND Internal Medicine
DX: E11.22 Type 2 diabetes mellitus with diabetic chronic kidney disease (principal); N18.30 Chronic kidney disease, stage 3 unspecified; N39.0 Urinary tract infection, site not specified; D63.1 Anemia in chronic kidney disease; R80.9 Proteinuria, unspecified; E21.3 Hyperparathyroidism, unspecified; M10.9 Gout, unspecified; E55.9 Vitamin D deficiency, unspecified
CPT/HCPCS: 36415; 80053; 81001; 82043; 82570; 83036; 83970; 84156; 85025

== ENCOUNTER 2025-04-15 08:44 | Outpatient (CLI) | payer OTHER ==
[2025-04-15 09:09] LABS: Hematocrit 35.5 % (41.0-53.0); Hemoglobin 11.9 g/dL (13.5-17.5); Mean Corpuscular Hemoglobin 33.0 pg (28.0-32.0); Mean Corpuscular Volume 98.3 fL (80.0-100.0); Nucleated Red Blood Cells % 0.2 %
[2025-04-15 10:17] LABS: Alanine Aminotransferase 12 U/L (7-40); Albumin 4.2 g/dL (3.2-4.8); Alkaline Phosphatase 52 U/L (46-116); Anion Gap 9 (5-15); BUN/Creatinine Ratio 25.7 (10.0-20.0); Bilirubin, Total 0.4 mg/dL (0.2-1.0); Calcium 9.9 mg/dL (8.7-10.4); Carbon Dioxide 24 mmol/L (20-31); Chloride 107 mmol/L (98-107); Glucose 93 mg/dL (74-106); Potassium 4.1 mmol/L (3.5-5.1); Sodium 140 mmol/L (136-145); Total Protein 6.3 g/dL (5.7-8.2)
[2025-04-15 10:19] LABS: Blood Urea Nitrogen 35 mg/dL (9-23)
== END 2025-04-15 17:00 | disposition home or self-care (01) ==
LOC: LAB 08:44
PROVIDERS: ATTEND Student in an Organized Health Care Education/Training Program
DX: C34.92 Malignant neoplasm of unspecified part of left bronchus or lung (principal); D70.9 Neutropenia, unspecified; R79.89 Other specified abnormal findings of blood chemistry
CPT/HCPCS: 36415; 80053; 85025

== ENCOUNTER 2025-04-30 07:30 | Emergency (ER) | payer OTHER ==
[~2025-04-30] VITALS: Ht 177.8 cm; Wt 81.8 kg
--- NOTE | 2025-04-30 07:49 | ED.PDOC ---
History of Present Illness HPI Comments 74-year-old male brought by paramedics because he fell while brushing his teeth this morning. He fell landing on his left hip causing a left-sided hip pain. Family noticed that he was moving his extremities for which they were worried that he might head injury to his head. History of [place] primary lung cancer being treated. He is currently on Plavix. He was able to move all his extremities no deficiencies on arrival. Denies any symptoms. Chief Complaint: Fall Injury Time Seen by MD: 07:34 Primary Care Provider: EVAN Reviewed Notes: Nurses Notes, Medications, Allergies Allergies: Coded Allergies: NO KNOWN ALLERGIES (Unverified , 06/01/24) Home Meds Active Scripts Levofloxacin Hemihydrate (LEVOFLOXACIN) 750 Mg Tab, 1 TAB PO DAILY for 5 Days, #5 TAB Prov:CATHERINE PRINCE 12/12/24 Hydrocodone-Acetaminophen (Hydrocodone Bitartrate/AC 5-325 mg) 1 Tab Tab, 1 TAB PO BIDPRN PRN for 7 Days, #14 TAB 0 Refills Prov:BRANDAN RENNER MUSIC THERAPY TEACHER 03/28/24 Reported Medications Prednisone (Prednisone) 5 Mg Tab, 1 TAB PO DAILY 12/11/24 Trazodone Hcl (Trazodone Hcl) 50 Mg Tab, 1 TAB PO 12/11/24 Famotidine (PEPCID TABLET) 20 Mg Tb, 1 TAB PO BID 12/11/24 Pancrelipase (Lipase-Protease- (Creon) Unknown Strength Cap, PO TID, CAP 05/09/23 Revefenacin (Yupelri) 175 Mcg/3 Ml Lia, 175 MCG IN DAILY, ML 05/09/23 Omeprazole Magnesium (Omeprazole) 20 Mg Tab, 40 MG PO DAILY, TAB 05/09/23 Clopidogrel Bisulfate (CLOPIDOGREL) 75 Mg Tab, 75 MG PO DAILY for 30 Days, MG 11/29/18 Metoprolol Succinate (Metoprolol Succinate Er) 25 Mg Tab, 1 TAB PO BID, #30 TAB 5 Refills 08/12/17 Febuxostat (Uloric) 40 Mg Tab, 1 TAB PO DAILY, #90 TAB 1 Refill 08/12/17 Nitroglycerin (NTROSTAT SUBLINGUAL) 0.4 Mg Sl, 0.4 MG SL PRN *MAY REPEAT EVERY 5 MINUTES X 3 TOTAL IF NO RELIEF, INITIATE ANALGESIC THERAPY. NOTIFY PHYSICIAN *Do not crush. 08/12/17 Ramipril (Ramipril) 2.5 Mg Cap, 1 CAP PO DAILY, #30 CAP 5 Refills 08/12/17 Atorvastatin Calcium (ATORVASTATIN CALCIUM) 40 Mg Tab, 1 TAB PO QPM, #90 TAB 3 Refills 08/12/17 Levothyroxine Sodium (Levothyroxine Sodium) 50 Mcg Tab, 50 MCG PO QAM for 30 Days, MCG 08/12/17 Citalopram Hydrobromide (Citalopram Hydrobromide) 20 Mg Tab, 20 MG PO DAILY for 30 Days, MG 08/12/17 Information Source: Patient, Emergency Med Personnel Mode of Arrival: EMS Severity: Moderate Timing: Minutes Duration: Since onset Past Medical History PAST MEDICAL HISTORY: CAD, Cancer, HTN, [place] Surgical History: PTCA Family History Family History: Reviewed,noncontributory to illness, Unknown Social History Smoker: Non-Smoker Alcohol: Denies ETOH Use Drugs: Denies Drug Use Lives In: Home Constitutional: denies: chills, diaphoresis, fatigue, fever, malaise, sweats, weakness, others EENTM: denies: blurred vision, double vision, ear bleeding, ear discharge, ear drainage, ear pain, ear ringing, eye pain, eye redness, hearing loss, mouth tracey n, mouth swelling, nasal discharge, nose bleeding, nose congestion, nose pain, photophobia, tearing, throat pain, throat swelling, voice changes, others Respiratory: denies: cough, hemoptysis, orthopnea, SOB at rest, shortness of breath, SOB with excertion, stridor, wheezing, others Cardiovascular: denies: chest pain, dizzy spells, diaphoresis, Dyspnea on exertion, edema, irregular heart beat, left arm pain, lightheadedness, palpitations, PND, syncope, others Gastrointestinal: denies: abdomen distended, abdominal pain, blood streaked bowels, constipated, diarrhea, dysphagia, difficulty swallowing, hematemesis, melena, nausea, poor appetite, poor fluid intake, rectal bleeding, rectal pain, vomiting, others Genitourinary: denies: burning, dysuria, flank pain, frequency, hematuria, incontinence, penile discharge, penile sore, pain, testicle pain, testicle swelling, urgency, others Neurological: denies: dizziness, fainting, headache, left sided numbness, left sided weakness, numbness, paresthesia, pre-existing deficit, right sided numbness, right sided weakness, seizure, speech problems, tingling, tremors, weakness, others Musculoskeletal: reports: joint pain (Left hip); denies: back pain, gout, joint swelling, muscle pain, muscle stiffness, neck pain, others Integumetry: denies: bruises, change in color, change in hair/nails, dryness, laceration, lesions, lumps, rash, wounds, others Allergic/Immunocompromised: denies: Difficulty Healing, Frequent Infections, Hives, Itching, others Hematologic/Lymphatic: denies: anemia, blood clots, easy bleeding, easy bruising, swollen glands, others Endocrine: denies: excessive hunger, excessive sweating, excessive thirst, excessive urination, flushing, intolerance to cold, intolerance to heat, unexplained weight gain, unexplained weight loss, others Psychiatric: denies: anxiety, bipolar disorder, depression, hopeless, panic disorder, schizophrenia, sleepless, suicidal, others Physical Exam General Appearance: Moderate Distress HEENT: Normal ENT Inspection, Pharynx Normal, TMs Normal Neck: Full Range of Motion, Non-Tender, Normal, Normal Inspection Respiratory: Chest Non-Tender, Lungs Clear, No Accessory Muscle Use, No Respiratory Distress, Normal Breath Sounds Cardiovascular: No Edema, No JVD, No Murmur, No Gallop, Normal Peripheral Pulses, Regular Rate/Rhythm Breast Exam: Deferred Gastrointestinal: No Organomegaly, Non Tender, No Pulsatile Mass, Normal Bowel Sounds, Soft Genitalia: Deferred Pelvic: Deferred Rectal: Deferred Extremities: No calf tenderness, Normal capillary refill, Normal inspection, Normal range of motion, Non-tender, No pedal edema Musculoskeletal : Apperance: Normal Neurologic: Alert, advertising rep II-XII nml as Tested, No Motor Deficits, Normal Affect, Normal Mood, No Sensory Deficits Cerebellar Function: Normal Reflexes: Normal Skin: Dry, Normal Color, Warm Peripheral Pulses: 3+ Radial (R), 3+ Radial (L) Lymphatic: No Adenopathy Was a procedure done? Was a procedure done?: No EKG EKG : Pulse Rate (adult): 87 Cardiac Rhythm: NSR Differential Dx Considerations may include: Head injury Electrolyte imbalance X-Ray, Labs, Meds, VS Vital Signs Date Time Temp Pulse Resp B/P (MAP) Pulse Ox O2 Delivery O2 Flow Rate FiO2 04/30/25 10:00 98.2 72 16 134/69 (90) 96 98.2 04/30/25 08:06 Room Air* 0 21 04/30/25 08:05 83 04/30/25 07:50 86 04/30/25 07:49 87 04/30/25 07:45 87 04/30/25 07:42 98.5 92 18 137/77 (97) 96 98.5 Lab Test 04/30/25 07:46 Range/Units White Blood Count 3.6 L 4.4-10.8 10^3/uL Red Blood Count 3.86 L 4.5-5.90 10^6/uL Hemoglobin 12.6 L 13.5-17.5 g/dL Hematocrit 37.7 L 41.0-53.0 % Mean Corpuscular Volume 97.8 80.0-100.0 fL Mean Corpuscular Hemoglobin 32.8 H 28.0-32.0 pg Mean Corpuscular Hemoglobin Concent 33.5 32.0-36.0 g/dL Red Cell Distribution Width 15.1 H 11.8-14.3 % Platelet Count 183 140-450 10^3/uL Mean Platelet Volume 6.6 L 6.9-10.8 fL Neutrophils (%) (Auto) 83.8 H 37.0-80.0 % Lymphocytes (%) (Auto) 5.0 L 10.0-50.0 % Monocytes (%) (Auto) 8.5 0.0-12.0 % Eosinophils (%) (Auto) 1.6 0.0-7.0 % Basophils (%) (Auto) 1.1 0.0-2.0 % Neutrophils # (Auto) 3.0 1.6-8.6 10 ^3/uL Lymphocytes # (Auto) 0.2 L 0.4-5.4 10 ^3/uL Monocytes # (Auto) 0.3 0-1.3 10 ^3/uL Eosinophils # (Auto) 0.1 0-0.8 10 ^3/uL Basophils # (Auto) 0 0-0.2 10 ^3/uL Nucleated Red Blood Cells 0.0 % Sodium Level 142 136-145 mmol/L Potassium Level 4.8 3.5-5.1 mmol/L Chloride Level 107 98-107 mmol/L Carbon Dioxide Level 27 20-31 mmol/L Anion Gap 8 5-15 Blood Urea Nitrogen 25 H 9-23 mg/dL Creatinine 1.33 H 0.700-1.30 mg/dL Glomerular Filtration Rate Calc 56 >90 mL/min BUN/Creatinine Ratio 18.8 10.0-20.0 Serum Glucose 96 74-106 mg/dL Calcium Level 10.3 8.7-10.4 mg/dL Troponin I High Sensitivity < 3 L </=54 ng/L Current Medications Medications (Trade) Dose Ordered Sig/Jazzy Route Start Time Stop Time Status Last Admin Sodium Chloride 1,000 ml @ 150 mls/hr Q6H40M ONCE IV 04/30/25 07:45 04/30/25 14:24 04/30/25 07:51 Methylprednisolone Sodium Succinate (Solu Medrol) 125 mg ONCE ONCE IV 04/30/25 09:00 04/30/25 09:01 DC 04/30/25 09:10 Dexamethasone Sodium Phosphate (Decadron Injection) 6 mg ONCE ONCE IV 04/30/25 11:00 04/30/25 11:01 DC 04/30/25 11:09 Pantoprazole Sodium (Protonix) 40 mg ONCE ONCE IV 04/30/25 11:00 04/30/25 11:01 DC 04/30/25 11:09 Patient alert. Vitals stable. Moving all extremities. Answering questions Currently on blood thinner. Mentating well. Denies any symptoms. Reviewed his history. Continue monitoring. EKG reviewed does not show any acute changes. CT of the head reviewed does show metastatic disease. Explain to the family. Family does not want any heroic measures. Was given steroid. [address] [address] Ph: [phone] DIAGNOSTIC IMAGING Diagnostic Imaging Report : [id number] Signed PATIENT: CRISTELA WHEELER ACCT: [id number] UNIT: [id number] : 1950 LOC: ER ROOM / BED: / AGE / SEX: 74 / M ADM STATUS: REG ER SERVICE [id number] ORDERING PHYSICIAN: AIDA ZAZUETA MD PROCEDURE(s): HWOCT - HEAD WITHOUT CONTRAST REASON: fall ORDER NUMBER(s): [id number], ACCESSION NUMBER(s): [id number] CLINICAL INFORMATION: Fall injury. TECHNIQUE: Axial imaging was obtained through the brain without contrast. Axial CT imaging of the cervical spine was also obtained without contrast. Coronal and sagittal reformatted images were obtained, reviewed, and stored. One or more of the following dose reduction techniques were used: Automated exposure control. Adjustment of mA and/or kV according to patient size. CTDIvol = 53.77, 7.56, 0.14 mGy DLP = 1354.05 mGy-cm COMPARISON: Correlation made to report from prior MRI brain dated 12/23/2024, images of which were not available for comparison at the time of dictation. FINDINGS: CT HEAD: No acute intracranial hemorrhage. There are at least 2 masses in the right frontal lobe, measuring approximately 1.7 cm and 1.6 cm, respectively with prominent surrounding edema and possible gliosis in the right frontal lobe. There is associated mass effect on adjacent sulci and up to 0.6 cm midline shift to the left. There is also mass effect on the right lateral ventricle due to the masses. Basal cisterns are patent. The calvarium is unremarkable. Paranasal sinuses and mastoid air cells are clear. CT CERVICAL SPINE: There is straightening of the normal cervical lordosis. No significant spondylolisthesis. Vertebral body heights are maintained. Posterior elements are intact. No evidence of acute fracture. Likely moderate spinal canal stenosis. Likely moderate spinal canal stenosis at C4-C5 due to posterior disc osteophyte complex. Prevertebral and paraspinal soft tissues are unremarkable. IMPRESSION: 1. No acute intracranial hemorrhage. 2. At least 2 masses are seen in the right frontal lobe with prominent surrounding edema, mass effect, and up to 0.6 cm midline shift to the left. No u ncal herniation. MRI brain without and with contrast could be obtained to better characterize these findings if clinically indicated. These findings are new compared to the report from the prior MRI brain exam. 3. No evidence of acute fracture or spondylolisthesis in the cervical spine. 4. Additional findings as described above. Critical findings Critical Result: Right frontal lobe masses. Midline shift to the left up to 0.6 cm. Findings discussed with AIDA ROMEO at 04/30/2025 10:39 AM CDT, and acknowledged receipt and understanding of the findings. .. ATED BY: BERLIN SHUKLA DO DICTATED DATE/TIME: 04/30/25844 SIGNED BY: BERLIN SHUKLA DO SIGNED DATE/TIME: 04/30/25844 CC: [place] [address] Ph: [phone] DIAGNOSTIC IMAGING Diagnostic Imaging Report : [id number] Signed PATIENT: CRISTELA WHEELER ACCT: [id number] UNIT: [id number] : 1950 LOC: ER ROOM / BED: / AGE / SEX: 74 / M ADM STATUS: REG ER SERVICE [id number] ORDERING PHYSICIAN: AIDA ZAZUETA MD PROCEDURE(s): CS2 - CERVICAL WITHOUT CONTRAST REASON: FALL ORDER NUMBER(s): [id number], ACCESSION NUMBER(s): [id number] CLINICAL INFORMATION: Fall injury. TECHNIQUE: Axial imaging was obtained through the brain without contrast. Axial CT imaging of the cervical spine was also obtained without contrast. Coronal and sagittal reformatted images were obtained, reviewed, and stored. One or more of the following dose reduction techniques were used: Automated exposure control. Adjustment of mA and/or kV according to patient size. CTDIvol = 53.77, 7.56, 0.14 mGy DLP = 1354.05 mGy-cm COMPARISON: Correlation made to report from prior MRI brain dated 12/23/2024, images of which were not available for comparison at the time of dictation. FINDINGS: CT HEAD: No acute intracranial hemorrhage. There are at least 2 masses in the right frontal lobe, measuring approximately 1.7 cm and 1.6 cm, respectively with prominent surrounding edema and possible gliosis in the right frontal lobe. There is associated mass effect on adjacent sulci and up to 0.6 cm midline shift to the left. There is also mass effect on the right lateral ventricle due to the masses. Basal cisterns are patent. The calvarium is unremarkable. Paranasal sinuses and mastoid air cells are clear. CT CERVICAL SPINE: There is straightening of the normal cervical lordosis. No significant spondylolisthesis. Vertebral body heights are maintained. Posterior elements are intact. No evidence of acute fracture. Likely moderate spinal canal stenosis. Likely moderate spinal canal stenosis at C4-C5 due to posterior disc osteophyte complex. Prevertebral and paraspinal soft tissues are unremarkable. IMPRESSION: 1. No acute intracranial hemorrhage. 2. At least 2 masses are seen in the right frontal lobe with prominent surrounding edema, mass effect, and up to 0.6 cm midline shift to the left. No uncal herniation. MRI brain without and with contrast could be obtained to better characterize these findings if clinically indicated. These findings are new compared to the report from the prior MRI brain exam. 3. No evidence of acute fracture or spondylolisthesis in the cervical spine. 4. Additional findings as described above. Critical findings Critical Result: Right frontal lobe masses. Midline shift to the left up to 0.6 cm. Findings discussed with AIDA ROMEO at 04/30/2025 10:39 AM CDT, and acknowledged receipt and understanding of the findings. .. ATED BY: BERLIN SHUKLA DO DICTATED DATE/TIME: 04/30/2545 SIGNED BY: BERLIN SHUKLA DO SIGNED DATE/TIME: 04/30/25844 CC: [place] [address] Ph: [phone] DIAGNOSTIC IMAGING Diagnostic Imaging Report : [id number] Signed with Diana PATIENT: CRISTELA WHEELER ACCT: [id number] UNIT: [id number] : 1950 LOC: ER ROOM / BED: / AGE / SEX: 74 / M ADM STATUS: REG ER SERVICE 0739 ORDERING PHYSICIAN: AIDA ZAZUETA MD PROCEDURE(s): PL2CT - PELVIS WO CONTRAST REASON: fall ORDER NUMBER(s): [id number], ACCESSION NUMBER(s): [id number] ADDENDUM ADDENDUM # 1 Addendum to replace findings and impression sections, which were somehow erased on the initial dictation. Findings: No acute fracture or dislocation. 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 Partially visualized moderate degenerative disc disease in the lower lumbar spine with disc space narrowing, endplate sclerosis, endplate spurring. No acute soft tissue abnormality identified. Moderate atherosclerotic calcification of the abdominal aorta and common iliac arteries. IMPRESSION: 1. No acute abnormality identified in the pelvis. 2. Nonacute findings as described above. ORIGINAL REPORT CLINICAL INFORMATION: 74 years old, Male; fall. TECHNIQUE: Axial CT images of the were obtained without IV contrast. Coronal and sagittal reformatted images were obtained, reviewed, and stored. 3D reconstructed images were created at an independent workstation with concurrent physician supervision. All CT scans at this medical facility are performed using dose modulation techniques as appropriate to a performed exam including the following: Automated exposure control was utilized; adjustment of the MA and/or KV according to patient size; and use of iterative reconstruction technique. CTDIvol = mGy DLP = mGy-cm COMPARISON: None FINDINGS: IMPRESSION: ATED BY: BERLIN SHUKLA DO DICTATED DATE/TIME: 04/30/25 1040 SIGNED BY: BERLIN SHUKLA DO SIGNED DATE/TIME: 04/30/25 1040 CC: CLINICAL INFORMATION: 74 years old, Male; fall. TECHNIQUE: Axial CT images of the were obtained without IV contrast. Coronal and sagittal reformatted images were obtained, reviewed, and stored. 3D reconstructed images were created at an independent workstation with concurrent physician supervision. All CT scans at this medical facility are performed using dose modulation techniques as appropriate to a performed exam including the following: Automated exposure control was utilized; adjustment of the MA and/or KV according to patient size; and use of iterative reconstruction technique. CTDIvol = mGy DLP = mGy-cm COMPARISON: None FINDINGS: IMPRESSION: ATED BY: BERLIN SHUKLA DO DICTATED DATE/TIME: 04/30/25852 SIGNED BY: BERLIN SHUKLA DO SIGNED DATE/TIME: 04/30/25852 CC: Time of 1ST Reevaluation: 07:47 Reevaluation 1ST: Unchanged Patient Education/Counseling: Diagnosis, Treatment, Prognosis, Need For Follow Up Family Education/Counseling: No Family Present SEPSIS Sepsis Screen Physician Orders Head Without Contrast (04/30/25 07:39) Urinalysis (04/30/25 07:39) Sodium Chloride 0.9% (04/30/25 07:45) Pelvis Wo Contrast (04/30/25 07:39) Control Tower Operator (04/30/25 ) Cervical Without Contrast (04/30/25 07:58) Vital Signs Date Time Temp Pulse Resp B/P (MAP) Pulse Ox O2 Delivery O2 Flow Rate FiO2 04/30/25 10:00 98.2 72 16 134/69 (90) 96 98.2 04/30/25 08:06 Room Air* 0 21 04/30/25 08:05 83 04/30/25 07:50 86 04/30/25 07:49 87 04/30/25 07:45 87 04/30/25 07:42 98.5 92 18 137/77 (97) 96 98.5 Laboratory Tests Test 04/30/25 07:46 White Blood Count 3.6 10^3/uL (4.4-10.8) L Medications Medications Dose Ordered Sig/Jazzy Route Start Time Stop Time Status Last Admin Dose Admin Dexamethasone Sodium Phosphate 6 mg ONCE ONCE IV 04/30/25 11:00 04/30/25 11:01 DC 04/30/25 11:09 Methylprednisolone Sodium Succinate 125 mg ONCE ONCE IV 04/30/25 09:00 04/30/25 09:01 DC 04/30/25 09:10 Pantoprazole Sodium 40 mg ONCE ONCE IV 04/30/25 11:00 04/30/25 11:01 DC 04/30/25 11:09 Sodium Chloride 1,000 ml @ 150 mls/hr Q6H40M ONCE IV 04/30/25 07:45 04/30/25 14:24 04/30/25 07:51 Departure 1 Departure Time of Disposition: 07:48 Impression: Primary Impression: Brain mass Additional Impression: Head injury Qualified Codes: S09.90XA - Unspecified injury of head, initial encounter Disposition: HOME / SELF CARE / HOMELESS Condition: Good Discharged With: Self Critical Care Note Critical Care Time?: Yes (90 min-critical care time only) Critical care comment: Monitoring neurological status Stability Stability form required: No Heart Score Heart Score: Heart Score Response (Comments) Value History Slightly Suspicious 0 EKG Normal 0 Age >65 2 Risk Factors >3 or Hx ASHD 2 Troponin Normal limit 0 Total 4 I personally scribed for AIDA ZAZUETA MD ([email or web address]) on 04/30/25 at 09:10. Electronically submitted by Luz Elena Phillips (Playto). I personally scribed for AIDA ZAZUETA MD ([email or web address]) on 04/30/25 at 09:11. Electronically submitted by Luz Elena Phillips (Playto). I personally scribed for AIDA ZAZUETA MD ([email or web address]) on 04/30/25 at 11:55. Electronically submitted by Luz Elena Phillips (Playto). AIDA ZAZUETA MD Apr 30, 2025 07:49
[2025-04-30] MEDS: SODIUM CHLORIDE 0.9% 1,000 ML IV ONE (07:51)
[2025-04-30 08:15] LABS: Chloride 107 mmol/L (98-107); Potassium 4.8 mmol/L (3.5-5.1); Sodium 142 mmol/L (136-145)
[2025-04-30 08:16] LABS: Anion Gap 8 (5-15); Calcium 10.3 mg/dL (8.7-10.4); Carbon Dioxide 27 mmol/L (20-31)
[2025-04-30 08:21] LABS: BUN/Creatinine Ratio 18.8 (10.0-20.0); Blood Urea Nitrogen 25 mg/dL (9-23); Glucose 96 mg/dL (74-106)
--- NOTE | 2025-04-30 08:23 | ECG ---
[facility] Test Date: 2025-04-30 Test Time: 07:45:39 Pat Name: CRISTELA WHEELER Department: ED Room: Gender: M Caser: GV : 1950 Requested By: AIDA ZAZUETA Order Number: [id number] Reading MD: Mark Jansen Measurements Intervals [place] Rate: 87 P: 102 KS: 147 QRS: 110 QRSD: 90 T: 36 QT: 386 QTc: 465 Interpretive Statements Right and left arm electrode reversal, interpretation assumes no reversal Sinus rhythm Right axis deviation Electronically Signed On 05-01-2025 17:00:21 PDT by Mark Jansen Please click the below link to view image of tracing.
[2025-04-30 08:37] LABS: Hematocrit 37.7 % (41.0-53.0); Hemoglobin 12.6 g/dL (13.5-17.5); Mean Corpuscular Hemoglobin 32.8 pg (28.0-32.0); Mean Corpuscular Volume 97.8 fL (80.0-100.0); Nucleated Red Blood Cells % 0.0 %
--- NOTE | 2025-04-30 08:47 | DVH ---
CLINICAL INFORMATION: Fall injury. TECHNIQUE: Axial imaging was obtained through the brain without contrast. Axial CT imaging of the ce rvical spine was also obtained without contrast. Coronal and sagittal reformatted images were obtaine d, reviewed, and stored. One or more of the following dose reduction techniques were used: Automated exposure control. Adjustment of mA and/or kV according to patient size. CTDIvol = 53.77, 7.56, 0.14 mGy DLP = 1354.05 mGy-cm COMPARISON: Correlation made to report from prior MRI brain dated 12/23/2024, images of which were n ot available for comparison at the time of dictation. FINDINGS: CT HEAD: No acute intracranial hemorrhage. There are at least 2 masses in the right frontal lobe, kimberly suring approximately 1.7 cm and 1.6 cm, respectively with prominent surrounding edema and possible gl iosis in the right frontal lobe. There is associated mass effect on adjacent sulci and up to 0.6 cm m idline shift to the left. There is also mass effect on the right lateral ventricle due to the masses . Basal cisterns are patent. The calvarium is unremarkable. Paranasal sinuses and mastoid air cell s are clear. CT CERVICAL SPINE: There is straightening of the normal cervical lordosis. No significant spondylolis thesis. Vertebral body heights are maintained. Posterior elements are intact. No evidence of acute fr acture. Likely moderate spinal canal stenosis. Likely moderate spinal canal stenosis at C4-C5 due to posterior disc osteophyte complex. Prevertebral and paraspinal soft tissues are unremarkable. IMPRESSION: 1. No acute intracranial hemorrhage. 2. At least 2 masses are seen in the right frontal lobe with prominent surrounding edema, mass effect , and up to 0.6 cm midline shift to the left. No uncal herniation. MRI brain without and with contras t could be obtained to better characterize these findings if clinically indicated. These findings are new compared to the report from the prior MRI brain exam. 3. No evidence of acute fracture or spondylolisthesis in the cervical spine. 4. Additional findings as described above. Critical findings Critical Result: Right frontal lobe masses. Midline shift to the left up to 0.6 cm. Findings discussed with AIDA ROMEO at 04/30/2025 10:39 AM CDT, and acknowledged receipt an d understanding of the findings. ..
--- NOTE | 2025-04-30 08:53 | DVH ---
CLINICAL INFORMATION: 74 years old, Male; fall. TECHNIQUE: Axial CT images of the were obtained without IV contrast. Coronal and sagittal reformatte d images were obtained, reviewed, and stored. 3D reconstructed images were created at an independent workstation with concurrent physician supervision. All CT scans at this medical facility are performe d using dose modulation techniques as appropriate to a performed exam including the following: Automa arsen exposure control was utilized; adjustment of the MA and/or KV according to patient size; and use of iterative reconstruction technique. CTDIvol = mGy DLP = mGy-cm COMPARISON: None FINDINGS: IMPRESSION:
[2025-04-30] MEDS: methylPREDNISolone SOD SUCC 125 MG/2 ML VL IV ONE (09:10)
[2025-04-30] MEDS: PANTOPRAZOLE 40 MG/10 ML VIAL INJ IV ONE (11:09)
[2025-04-30 12:01] VITALS: BP 116/68; PULSE 74; RESP 16; TEMP 98.2; O2SAT 95
== END 2025-04-30 12:26 | disposition home or self-care (01) ==
LOC: ER 07:30 → EDBD 07:30 → ER 12:26
DX: S09.90XA Unspecified injury of head, initial encounter (principal); C71.9 Malignant neoplasm of brain, unspecified; I25.10 Atherosclerotic heart disease of native coronary artery without angina pectoris; I10 Essential (primary) hypertension; I25.2 Old myocardial infarction; W19.XXXA Unspecified fall, initial encounter; Y93.89 Activity, other specified; Y92.89 Other specified places as the place of occurrence of the external cause; Y99.8 Other external cause status
CPT/HCPCS: 36415; 70450; 72125; 72192; 80048; 82947; 84484; 85025; 93005; 96361; 96374; 96375; 99285; J1100; J2470; J2919; J7030

== ENCOUNTER 2025-05-02 17:39 | Emergency (ER) | payer OTHER ==
[~2025-05-02] VITALS: Ht 175.3 cm; Wt 64.5 kg
--- NOTE | 2025-05-02 18:06 | ED.PDOC ---
History of Present Illness HPI Comments This is a 74 year old male presenting to the ED with chief complaint of imaging studies. Patient reports that he has lung cancer with metastasis to the brain. Patient relays that a previous CT showed midline shift and he was placed on hospice. Patient states that he saw his oncologist and PCP recently, both noting that he needs an MRI to properly assess the tumor in his brain, however, no orders were placed and he was advised to come to the ED for an MRI. Patient notes he is no longer on hospice due to coming to needing to come to the ED. Patient denies any further questions or concerns at this time. Chief Complaint: Dizziness Time Seen by MD: 18:03 Primary Care Provider: EVAN Reviewed Notes: Nurses Notes, Medications, Allergies Allergies: Coded Allergies: NO KNOWN ALLERGIES (Unverified , 06/01/24) Home Meds Active Scripts Levofloxacin Hemihydrate (LEVOFLOXACIN) 750 Mg Tab, 1 TAB PO DAILY for 5 Days, #5 TAB Prov:CATHERINE PRINCE 12/12/24 Hydrocodone-Acetaminophen (Hydrocodone Bitartrate/AC 5-325 mg) 1 Tab Tab, 1 TAB PO BIDPRN PRN for 7 Days, #14 TAB 0 Refills Prov:BRANDAN RENNER VIBRATION TECHNICIAN 03/28/24 Reported Medications Prednisone (Prednisone) 5 Mg Tab, 1 TAB PO DAILY 12/11/24 Trazodone Hcl (Trazodone Hcl) 50 Mg Tab, 1 TAB PO 12/11/24 Famotidine (PEPCID TABLET) 20 Mg Tb, 1 TAB PO BID 12/11/24 Pancrelipase (Lipase-Protease- (Creon) Unknown Strength Cap, PO TID, CAP 05/09/23 Revefenacin (Yupelri) 175 Mcg/3 Ml Lia, 175 MCG IN DAILY, ML 05/09/23 Omeprazole Magnesium (Omeprazole) 20 Mg Tab, 40 MG PO DAILY, TAB 05/09/23 Clopidogrel Bisulfate (CLOPIDOGREL) 75 Mg Tab, 75 MG PO DAILY for 30 Days, MG 11/29/18 Metoprolol Succinate (Metoprolol Succinate Er) 25 Mg Tab, 1 TAB PO BID, #30 TAB 5 Refills 08/12/17 Febuxostat (Uloric) 40 Mg Tab, 1 TAB PO DAILY, #90 TAB 1 Refill 08/12/17 Nitroglycerin (NTROSTAT SUBLINGUAL) 0.4 Mg Sl, 0.4 MG SL PRN *MAY REPEAT EVERY 5 MINUTES X 3 TOTAL IF NO RELIEF, INITIATE ANALGESIC THERAPY. NOTIFY PHYSICIAN *Do not crush. 08/12/17 Ramipril (Ramipril) 2.5 Mg Cap, 1 CAP PO DAILY, #30 CAP 5 Refills 08/12/17 Atorvastatin Calcium (ATORVASTATIN CALCIUM) 40 Mg Tab, 1 TAB PO QPM, #90 TAB 3 Refills 08/12/17 Levothyroxine Sodium (Levothyroxine Sodium) 50 Mcg Tab, 50 MCG PO QAM for 30 Days, MCG 08/12/17 Citalopram Hydrobromide (Citalopram Hydrobromide) 20 Mg Tab, 20 MG PO DAILY for 30 Days, MG 08/12/17 Information Source: Patient Mode of Arrival: Ambulatory Severity: Moderate Timing: Days Duration: Since onset Prehospital treatment: None Past Medical History PAST MEDICAL HISTORY: CAD, Cancer, HTN, [place] Surgical History: PTCA Family History Family History: Reviewed,noncontributory to illness, Unknown Social History Smoker: Non-Smoker Alcohol: Denies ETOH Use Drugs: Denies Drug Use Lives In: Home Constitutional: reports: weakness; denies: chills, diaphoresis, fatigue, fever, malaise, sweats, others EENTM: denies: blurred vision, double vision, ear bleeding, ear discharge, ear drainage, ear pain, ear ringing, eye pain, eye redness, hearing loss, mouth pain, mouth swelling, nasal discharge, nose bleeding, nose congestion, nose pain, photophobia, tearing, throat pain, throat swelling, voice changes, others Respiratory: denies: cough, hemoptysis, orthopnea, SOB at rest, shortness of breath, SOB with excertion, stridor, wheezing, others Cardiovascular: denies: chest pain, dizzy spells, diaphoresis, Dyspnea on exertion, edema, irregular heart beat, left arm pain, lightheadedness, palpitations, PND, syncope, others Gastrointestinal: denies: abdomen distended, abdominal pain, blood streaked bowels, constipated, diarrhea, dysphagia, difficulty swallowing, hematemesis, me aron, nausea, poor appetite, poor fluid intake, rectal bleeding, rectal pain, vomiting, others Genitourinary: denies: burning, dysuria, flank pain, frequency, hematuria, incontinence, penile discharge, penile sore, pain, testicle pain, testicle swelling, urgency, others Neurological: denies: dizziness, fainting, headache, left sided numbness, left sided weakness, numbness, paresthesia, pre-existing deficit, right sided numbness, right sided weakness, seizure, speech problems, tingling, tremors, weakness, others Musculoskeletal: denies: back pain, gout, joint pain, joint swelling, muscle pain, muscle stiffness, neck pain, others Integumetry: denies: bruises, change in color, change in hair/nails, dryness, laceration, lesions, lumps, rash, wounds, others Allergic/Immunocompromised: denies: Difficulty Healing, Frequent Infections, Hives, Itching, others Hematologic/Lymphatic: denies: anemia, blood clots, easy bleeding, easy bruising, swollen glands, others Endocrine: denies: excessive hunger, excessive sweating, excessive thirst, excessive urination, flushing, intolerance to cold, intolerance to heat, unexplained weight gain, unexplained weight loss, others Psychiatric: denies: anxiety, bipolar disorder, depression, hopeless, panic disorder, schizophrenia, sleepless, suicidal, others Unable to Obtain due to: Altered Mental Status All Other Systems: Reviewed and Negative Physical Exam General Appearance: Mild Distress (Patient was in no distress but appears to be in poor overall health. Patient was a poor historian), Normal HEENT: Normal ENT Inspection, Pharynx Normal, TMs Normal Neck: Full Range of Motion, Non-Tender, Normal, Normal Inspection Respiratory: No Accessory Muscle Use, Wheezing (In multiple global lung conner) Cardiovascular: No Edema, No JVD, No Murmur, No Gallop, Normal Peripheral Pulses, Regular Rate/Rhythm Breast Exam: Deferred Gastrointestinal: No Organomegaly, Non Tender, No Pulsatile Mass, Normal Bowel Sounds, Soft Genitalia: Deferred Pelvic: Deferred Rectal: Deferred Extremities: No calf tenderness, Normal capillary refill, No pedal edema Musculoskeletal : Apperance: Normal Neurologic: Alert Cerebellar Function: NOT DONE Reflexes: NOT DONE Skin: Dry, Normal Color, Warm Lymphatic: No Adenopathy Was a procedure done? Was a procedure done?: No Differential Dx Considerations may include: Lung cancer, metastasizing lung cancer, brain tumor X-Ray, Labs, Meds, VS Vital Signs Date Time Temp Pulse Resp B/P (MAP) Pulse Ox O2 Delivery O2 Flow Rate FiO2 05/02/25 18:02 97.8 82 20 130/78 (95) 98 97.8 Lab Test 05/02/25 18:01 Range/Units POC Glucose 144 H 70-106 mg/dl X-Ray, Labs, Meds, VS Comment This patient was seen by Tomorrow yesterday and therefore, he was involved in conversations with the family and the patient with respect to services that we can provide today. We advised that we do not do MRIs in the ED and therefore, primary care provider requested a CT evaluation to see if the mass has grown in size and rule out any additional midline shift. Patient and family were understanding of what we were going to do today. Imaging studies showed continuation from yesterday's results. No additional midline shift was noted. Patient will be discharged home with the advised him to follow up with the primary care provider and oncologist for MRI referral. Time of 1ST Reevaluation: 19:51 Reevaluation 1ST: Unchanged Consultation: PCP, Other (Oncology) Patient Education/Counseling: Diagnosis, Treatment Family Education/Counseling: Diagnosis, Treatment SEPSIS Sepsis Screen Recent Procedure: No On Antibiotic Therapy: No Respiratory Rate >20: No Heart Rate >90: No Temp<36 C (96.8 F) or >38.3 C: No SBP <90 or MAP <65 mmHG: No New Acute Mental Status Change: No Is the patient on CPAP, BIPAP,: No Physician Orders Head Without Contrast (05/02/25 18:00) Vital Signs Date Time Temp Pulse Resp B/P (MAP) Pulse Ox O2 Delivery O2 Flow Rate FiO2 05/02/25 18:02 97.8 82 20 130/78 (95) 98 97.8 Departure 1 Departure Time of Disposition: 19:51 Impression: Primary Impression: Brain mass Disposition: 01 HOME / SELF CARE / HOMELESS Condition: Stable Additional Instructions: Advised continue follow up with the primary care provider and Oncology for MRI referral and continued evaluation. Discharged With: Self, Spouse Critical Care Note Critical Care Time?: No Stability Stability form required: No Heart Score Heart Score: Heart Score Response (Comments) Value History N/A 0 EKG N/A 0 Age N/A 0 Risk Factors N/A 0 Troponin N/A 0 Total 0 I personally scribed for MILES MCLEAN PAC ([email or web address]) on 05/02/25 at 18:06. Electronically submitted by Wagner Queen ([email or web address]). MILES MCLEAN PAC May 02, 2025 18:06
--- NOTE | 2025-05-02 18:54 | DVH ---
Procedure: CT HEAD WITHOUT CONTRAST Study Date and Requested Time: 05/02/2025 06:15 PM History: Worsening of midline shift Comparison: CT HEAD WITHOUT CONTRAST on DOS: 04/30/25 Dose: CTDI: 48.98 mGy DLP: 785.45 mGycm Technique: Multiplanar images obtained through the brain without intravenous contrast. Findings: Relatively unchanged right frontal lobe heterogeneous masses with surrounding perilesional edema lisandro uring up to 1.8 by 1.4 cm of the high convexity and 1.7 x 1.6 cm of the low convexity. There is Relatively unchanged 0.6 cm leftward midline shift and right subfalcine herniation. No hemorrhages. [id number] chronic small-vessel ischemic changes. No intra-axial or extra-axial fluid collections. No evidence of hydrocephalus. The basal cisterns are patent. bilateral basal gang franca physiologic calcification. The pituitary gland, sella and parasellar regions are unremarkable. The cerebellar tonsils are in nor mal position. The cerebellum is unremarkable. Bilateral lens replacement. Otherwise, orbits and globes are unremarkable. The paranasal sinuses and mastoids are clear. There are no worrisome calvarial lesions. Impression: Unchanged right frontal lobe masses with unchanged surrounding edema and relatively unchanged 0.6 cm leftward midline shift and right subfalcine herniation.MRI with and without contrast is recommended f or further evaluation.
[2025-05-02 20:16] VITALS: BP 116/67; PULSE 69; RESP 20; TEMP 98.7; O2SAT 97
== END 2025-05-02 20:27 | disposition home or self-care (01) ==
LOC: ER 17:39
DX: C79.31 Secondary malignant neoplasm of brain (principal); I10 Essential (primary) hypertension; I25.10 Atherosclerotic heart disease of native coronary artery without angina pectoris; I21.9 Acute myocardial infarction, unspecified; Z79.52 Long term (current) use of systemic steroids; Z79.899 Other long term (current) drug therapy
CPT/HCPCS: 70450; 82947; 82962

== ENCOUNTER 2025-05-06 08:49 | Outpatient (CLI) | payer OTHER ==
[2025-05-06 09:16] LABS: Hematocrit 41.1 % (41.0-53.0); Hemoglobin 13.5 g/dL (13.5-17.5); Mean Corpuscular Hemoglobin 32.3 pg (28.0-32.0); Mean Corpuscular Volume 97.8 fL (80.0-100.0)
[2025-05-06 09:41] LABS: Alanine Aminotransferase 16 U/L (7-40); Albumin 4.4 g/dL (3.2-4.8); Alkaline Phosphatase 51 U/L (46-116); Anion Gap 10 (5-15); BUN/Creatinine Ratio 28.8 (10.0-20.0); Bilirubin, Total 0.5 mg/dL (0.2-1.0); Calcium 9.7 mg/dL (8.7-10.4); Carbon Dioxide 24 mmol/L (20-31); Chloride 103 mmol/L (98-107); Glucose 106 mg/dL (74-106); Potassium 4.2 mmol/L (3.5-5.1); Sodium 137 mmol/L (136-145); Total Protein 6.4 g/dL (5.7-8.2)
[2025-05-06 10:04] LABS: Blood Urea Nitrogen 42 mg/dL (9-23)
[2025-05-06 10:44] LABS: Anisocytosis Slight; Total Cells Counted 100.0 (100)
[2025-05-06 10:50] LABS: Uric Acid 5.5 mg/dL (3.7-9.2)
== END 2025-05-06 17:00 | disposition home or self-care (01) ==
LOC: LAB 08:49
PROVIDERS: ATTEND Internal Medicine
DX: C34.92 Malignant neoplasm of unspecified part of left bronchus or lung (principal); D70.9 Neutropenia, unspecified; R79.89 Other specified abnormal findings of blood chemistry; M06.4 Inflammatory polyarthropathy
CPT/HCPCS: 36415; 80053; 84436; 84443; 84480; 84550; 85007; 85027; 85652; 86141